=== PATIENT | male | born 1970 | race Caucasian/White ===

== ENCOUNTER 2021-03-15 06:42 | Outpatient (REF) | payer BC, SELFPAY ==
[2021-03-15 12:04] LABS: PSA,Total (Free>4and<10) 1.23 ng/mL (0.00-4.00)
== END 2021-03-15 06:43 | disposition home or self-care (01) ==
LOC: HO.HMGCLDS 06:42
PROVIDERS: PCP Internal Medicine; Visit Provider Urology
DX: Z12.5 Encounter for screening for malignant neoplasm of prostate (principal); R39.12 Poor urinary stream
CPT/HCPCS: 36415; 84153

== ENCOUNTER → 2021-03-21 12:56 | Outpatient (BNVA) | payer BC, SELFPAY | PROVIDERS: Visit Provider Urology | DX: R39.12 Poor urinary stream (principal); N52.01 Erectile dysfunction due to arterial insufficiency | CPT/HCPCS: 51798 ==

== ENCOUNTER 2022-04-18 10:01 | Outpatient (REF) | payer BC, SELFPAY ==
--- NOTE | ~2022-04-18 | XR_ITS ---
EXAMINATION: XR KNEE, RIGHT CLINICAL INFORMATION: Pain COMPARISON: None TECHNIQUE: Two views of the right knee. FINDINGS: No fracture or dislocation. No suprapatellar joint effusion. There is mild narrowing of the medial joint space height. Other joint spaces are maintained. Tiny tricompartmental marginal osteophytes. No focal soft tissue swelling of the anterior knee. XR/XR knee RT 2V IMPRESSION: Minimal degenerative changes of the right knee.
--- NOTE | ~2022-04-18 | XR_ITS ---
EXAMINATION: XR CHEST CLINICAL INFORMATION: Chest pain COMPARISON: None TECHNIQUE: 2 views of the chest were obtained. FINDINGS: No significant abnormality is noted involving the heart, lungs, mediastinum, bony thorax or soft tissues. XR/XR chest 2V IMPRESSION: Unremarkable examination.
== END 2022-04-18 10:02 | disposition home or self-care (01) ==
LOC: HO.HMGCX 10:01
PROVIDERS: PCP Family Medicine; Visit Provider Family Medicine
DX: R07.89 Other chest pain (principal); M25.561 Pain in right knee
CPT/HCPCS: 71046; 73560

== ENCOUNTER 2022-04-19 06:08 | Outpatient (REF) | payer BC, SELFPAY ==
[2022-04-19 11:12] LABS: MANUAL DIFF FLAG NO
[2022-04-19 11:16] LABS: Basophils Percent Auto 0.6 % (0-2); Eosinophils Absolute Auto 0.1 X10*3/uL (0.0-0.4); Eosinophils Percent Auto 2.1 % (0-4); Hematocrit 44.9 % (42.0-52.0); Hemoglobin 14.9 g/dl (14.0-18.0); Imm Gran Abs Auto 0.02 X10*3/uL (0.00-0.03); Imm Gran Pct Auto 0.4 % (0.0-0.4); Lymphocytes Absolute Auto 1.9 X10*3/uL (1.2-4.9); Lymphocytes Percent Auto 36.5 % (20-40); Mean Corpuscular HGB Conc 33.2 g/dl (31.0-36.0); Mean Corpuscular Hemoglobin 30.8 pg (27.0-33.0); Mean Corpuscular Volume 92.8 fL (80.0-98.0); Mean Platelet Volume 9.8 fL (9.4-12.4); Monocytes Absolute Auto 0.6 X10*3/uL (0.1-1.2); Monocytes Percent Auto 10.4 % (2-11); Neutrophils Absolute Auto 2.7 x10*3/uL (2.0-8.3); Platelet Count 306 X10*3/uL (160-400); Red Blood Count 4.84 X10*6/uL (4.60-5.80); Red Cell Distribution Width 12.8 % (11.0-16.0); White Blood Count 5.3 X10*3/uL (4.8-10.8)
[2022-04-19 11:22] LABS: Appearance Urine Turbid; Color Urine Yellow; Glucose Urine UA Negative (Negative); Leukocyte Esterase Urine Negative (Negative); Nitrite Urine Negative (Negative); PH 5.5 (5.0-9.0); Specific Gravity - Urine 1.025 (1.005-1.025); Urine Blood Negative (Negative); Urine Ketones Negative (Negative); Urine Protein Negative (Neg-Trace)
[2022-04-19 11:50] LABS: Creatinine Urine 230.92 mg/dL; Microalbum/Creatinine Ratio Ur 4.7 ug/mg cr
[2022-04-19 11:51] LABS: Troponin-I High Sensitivity < 3.5 ng/L (<3.5-35.0)
[2022-04-19 11:55] LABS: Alanine Aminotransferase 22 U/L (0-40); Albumin Level 4.4 g/dL (3.5-5.0); Alkaline Phosphatase 75 U/L (39-117); Anion Gap 14 (12-20); Aspartate Amino Transferase 19 U/L (5-37); Bilirubin Total 0.7 mg/dL (0.0-1.0); Blood Urea Nitrogen 16 mg/dL (9-16); Calcium 9.4 mg/dL (8.4-10.2); Carbon Dioxide 26 mmol/L (22-29); Chloride 106 mmol/L (96-108); Cholesterol 233 mg/dL; Estimated Glomerular Filt Rate > 60; Glucose Fasting 105 mg/dL (60-99); HDL Cholesterol 48 mg/dL; LDL Cholesterol Calculated 151 mg/dl; Potassium 4.3 mmol/L (3.3-5.1); Sodium 142 mmol/L (135-145); Total Protein 7.3 g/dL (6.5-8.0); Triglycerides 170 mg/dL
[2022-04-19 11:56] LABS: Prostate Specific Antigen Scr 1.02 ng/mL (<0.05-4.0)
== END 2022-04-19 06:09 | disposition home or self-care (01) ==
LOC: HO.HMGCLDS 06:08
PROVIDERS: PCP Family Medicine; Visit Provider Family Medicine
DX: Z00.00 Encounter for general adult medical examination without abnormal findings (principal); R07.89 Other chest pain; I10 Essential (primary) hypertension; Z12.5 Encounter for screening for malignant neoplasm of prostate
CPT/HCPCS: 36415; 80053; 80061; 81003; 82043; 84153; 84443; 84484; 85025

== ENCOUNTER → 2022-04-24 07:33 | Outpatient (REF) | payer BC, SELFPAY ==
--- NOTE | 2022-04-24 07:35 | CA_ITS ---
Acquisition Time: 2022-04-24 08:02:12 Total Exercise Time: 00:12:45 Test Indications: CP, SOB Medications: SEE CHART Protocol: GILBERT Max HR: 155 BPM 92% of Pred: 167 BPM Max BP: 174/068 mmHG Max Work Load: 14.7 METS Exercise stress test with exercise 12 min 45 sec of Gilbert protocol, achieving 92% MPHR, 14.7 METs, with report of mild sob and fatigue with need to stop, no chest discomfort, without arrythmia, with normotensive response to exercise, without EKG changes meeting criteria for ischemia. In recovery his breathing improved but he reports an ongoing and continual feeling that he can't take in a deep breath . Test reviewed with Dr Angeles Referred By: Ganga Bullock Overread By: ROOSEVELT MARIA
== END ==
LOC: HO.CARD 07:33
PROVIDERS: PCP Family Medicine; Visit Provider Family Medicine
DX: R07.89 Other chest pain (principal)
CPT/HCPCS: 93017

== ENCOUNTER 2022-06-29 14:55 | Outpatient (REF) | payer BC, SELFPAY ==
--- NOTE | 2022-06-29 16:06 | PFT_ITS ---
INDICATION: Nicotine dependence. SPIROMETRY: FEV1 to FVC 90% with an FEV1 of 3.62 L, which is 97% predicted. FVC of 4.01 L, which is 82% predicted. No significant response to bronchodilators noted. Maximum voluntary ventilation 95% predicted. LUNG VOLUMES: Total lung capacity 91% predicted. DIFFUSION CAPACITY: DLCO 91% predicted. COMPARISONS: None. INTERPRETATION: No obstructive nor restrictive ventilatory defects identified. No significant response to bronchodilators noted. Normal maximum voluntary ventilation. Lung volumes are within normal limits and diffusion capacity is also within normal limits. Clinical correlation warranted. Chuck Johnson MD MR/MODL / [id number]
== END 2022-06-29 14:56 | disposition home or self-care (01) ==
LOC: HO.RESP 14:55
PROVIDERS: PCP Family Medicine; Visit Provider Family Medicine
DX: R06.00 Dyspnea, unspecified (principal); R09.02 Hypoxemia; Z87.891 Personal history of nicotine dependence
CPT/HCPCS: 94060; 94727; 94729

== ENCOUNTER → 2022-10-29 13:57 | Outpatient (BNVA) | payer BC, SELFPAY | PROVIDERS: PCP Family Medicine; Visit Provider Urology | DX: N40.1 Benign prostatic hyperplasia with lower urinary tract symptoms (principal); R33.8 Other retention of urine; R39.198 Other difficulties with micturition; R39.15 Urgency of urination; N52.9 Male erectile dysfunction, unspecified; Z79.899 Other long term (current) drug therapy | CPT/HCPCS: 51798 ==

== ENCOUNTER 2022-12-27 12:43 | Outpatient (REF) | payer BC, SELFPAY | END 2022-12-27 12:44 | disposition home or self-care (01) | LOC: HO.US 12:43 | PROVIDERS: Visit Provider Urology | DX: N40.0 Benign prostatic hyperplasia without lower urinary tract symptoms (principal) | CPT/HCPCS: 51798; 76775 ==

== ENCOUNTER 2022-12-27 13:35 | Outpatient (AMB) | payer BC, SELFPAY ==
--- NOTE | 2022-12-27 13:10 | A.OFFVIS_ITS ---
Intake Intake Visit Reasons: 2m/US Intake Note: Patient presents today for follow up ultrasound Meds: tadalafil, tamsulosin Antibiotic: None Blood Thinner: None Retrofit Installer Required: No Accompanied by: Self / Same As Patient Allergies No Known Allergies Allergy (Verified 12/27/22 14:03) HPI HPI Comments History of Present Illness Details Jaquan is a 52-year-old male who presents to the office for discussion of renal US results. 12/27/22-- Jaquan was initially evaluated by me on 10/29/22. He had complains of weak urianry stream and feeling of incomplete bladder emptying. At the time of visit he has been using tamsulosin for about a month that was prescribed with PCP as indicated. There was mild improvement in the urinary flow with the medication. He also had concerns regarding erectile dysfunction and I discussed restarting Cialis in combination with tamsulosin therapy. AUA symptom score discussed 21. He is here follow-up post renal US and to discuss any changes in his symptoms. The patient states improvement in nocturia and urinary flow with tamsulosin 0.4 mg QD. States improvement in erectile dysfucntion with Cialis 5 mg QD. Renal US results reviewed-- The US is yet to be transcribed by the radiologist. There is a possible left kidney stone, 7 mm left kidney stone versus calcified vessel. Evaluation today UA: Blood: 10 Osiel/uL, leukocytes: 125 Eva/uL. Plan: CAT scan was ordered. Follow-up after 3 months. [facility] Medical History Erectile dysfunction due to arterial insufficiency Weak urinary stream Surgical History History of surgery Family History Mother Colon cancer Sister Cervical ca Social History Housing: House Patient Tobacco Use Status: Former Tobacco user Tobacco use type: Cigarette Cigarettes Per Day: 20 Years Smoked: 30 e-Cigarette/Vaping Use: Never Used Second Hand Smoke Exposure: No service: Yes Current occupational status: employed Current occupational exposures/hazards: No Cognitive needs: No Hearing needs: No Vision needs: No Review of Systems Const All systems reviewed & are unremarkable except as noted in HPI and below Reports no additional complaints Eyes Reports no additional complaints ENT Denies neck pain Card Denies leg edema Resp Denies cough GI Denies constipation Musc Reports no additional complaints and Denies neck pain Skin/Breast Denies rash and Denies unusual bruising Neuro Reports no additional complaints Psych Reports no additional complaints Endo Reports no additional complaints Phillip/Lymph Reports no additional complaints Aller/Immun Reports no additional complaints Physical Exam Const General: healthy appearing, no acute distress and well developed Orientation/consciousness: patient oriented x3 HEENT Head: Yes normocephalic and Yes atraumatic Eyes Conjunctivae: conjunctivae normal Neck Neck: Yes normal visual inspection Chest Chest palpation & inspection: normal inspection of the chest Resp Effort & Inspection: normal respiratory effort Cardio Rate: regular rate GI Inspection: Yes normal to inspection Skin General skin exam: no rashes or lesions noted Neuro General: patient oriented x3 Psych Appearance: grossly normal Affect: normal affect Office Procedures Post Void Residual Post Residual Void Post Void Residual (PVR): 68 [id number] Void Residual by ultrasound Results AMB Urinalysis, Automated UA Leukoctes 125 Eva/uL Last Edit by [employer] on 12/27/22 14:14 UA Nitrite Negative Last Edit by [employer] on 12/27/22 14:14 UA Urobilinogen 0.2 mg/dL Last Edit by [employer] on 12/27/22 14:14 UA Protein 0 mg/dL Last Edit by [employer] on 12/27/22 14:14 UA pH 6.0 Last Edit by [employer] on 12/27/22 14:14 UA Blood 10 Osiel/uL Last Edit by [employer] on 12/27/22 14:14 UA Specific [place] 1.015 Last Edit by [employer] on 12/27/22 14:14 UA Ketone Negative Last Edit by [employer] on 12/27/22 14:14 UA Bilirubin 0 mg/dL Last Edit by [employer] on 12/27/22 14:14 UA Glucose 0 mg/dL Last Edit by [employer] on 12/27/22 14:14 Results Reviewed Results Reviewed: Laboratory Last Values Urine pH (Auto) 6.0 12/27/22 14:04 Specific [place] (Auto) 1.015 12/27/22 14:04 Urine Protein (Auto) 0 mg/dL 12/27/22 14:04 Glucose (UA)(Auto) 0 mg/dL 12/27/22 14:04 Urine Ketones (Auto) Negative 12/27/22 14:04 Urine Blood (Auto) 10 Osiel/uL 12/27/22 14:04 Urine Nitrite (Auto) Negative 12/27/22 14:04 Urine Bilirubin (Auto) 0 mg/dL 12/27/22 14:04 Urine Urobilinogen (Auto) 0.2 mg/dL 12/27/22 14:04 Leukocyte Esterase (Auto) 125 Eva/uL 12/27/22 14:04 Assessment & Plan Assessment & Plan (1) Kidney stone on left side: Code(s): N20.0 - Calculus of kidney (2) Slowing of urinary stream: Code(s): R39.198 - Other difficulties with micturition (3) Urgency of micturition: Code(s): R39.15 - Urgency of urination (4) Erectile dysfunction: Code(s): N52.9 - Male erectile dysfunction, unspecified Plan CAT scan was ordered. Follow-up after 3 months. Orders: Orders US renal BI 12/27/22 N40.0 - Benign prostatic hyperplasia without lower urinary tract symptoms CT abdomen pelvis wo IV con 12/27/22 N20.0 - Calculus of kidney AMB Urinalysis Automated 12/27/22 Z13.9 - Encounter for screening, unspecified AMB Post Void Residual by ultrasound 12/27/22 N40.0 - Benign prostatic hyperplasia without lower urinary tract symptoms Medications: Refilled tamsulosin (Flomax) 0.4 mg PO BEDTIME 90 caps 2RF 30 days tadalafil (Cialis) [id number] [facility] [id number] Member [id number] 5 mg PO DAILY 30 tabs 3RF Patient Instructions: The patient had an opportunity to ask questions regarding treatment plan. All questions were answered. Imaging, Laboratory studies and physical exam results were discussed and reviewed in detail. No major barriers to understanding were identified. The patient expressed understanding and agreement with the above treatment plan. The patient is aware they should contact our office by phone for worsening of their current condition or the appearance of new symptoms. Compliance is encouraged with any medications and followup testing that is ordered. It is a privilege to be allowed the opportunity to participate in the urologic care of your patient. If you have any questions or concerns regarding treatment for the above conditions please do not hesitate to contact me. The office telephone contact is [phone]. This note is constructed in part using voice recognition software. While every effort has been made to ensure accuracy looper fixer errors may have been included. Yours sincerely, Catrachito Mckeon MD Coding Level of Care Code Est Pt Level 4 (82264) Diagnoses Kidney stone on left side N20.0 Slowing of urinary stream R39.198 Urgency of micturition R39.15 Erectile dysfunction N52.9 CPT Codes Post Residual Void - PVR CPT Code: 55509-Jdgj Void Residual by ultrasound ([id number])
== END 2022-12-27 14:29 | disposition home or self-care (01) ==
PROVIDERS: Visit Provider Urology
DX: N20.0 Calculus of kidney (principal); R39.198 Other difficulties with micturition; R39.15 Urgency of urination; N52.9 Male erectile dysfunction, unspecified
CPT/HCPCS: 99214

== ENCOUNTER 2022-12-31 13:54 | Outpatient (AMB) | payer BC, SELFPAY ==
[2022-12-31 13:57] VITALS: BP 110/70; PULSE 60; BMI 28.3
--- NOTE | 2022-12-31 13:57 | MHC.OFFVIS ---
Intake Vital Signs 12/31/22 13:57 Height 5 ft 9 in Weight 191 lb 12.835 oz BMI 28.3 BP 110/70 Blood Pressure Location Lt brachial Position Sitting Pulse 60 Intake Visit Reasons: NPV Dyspnea, PCP Ara referred Intake Note: New patient c/o tightness in chest Market Risk Analyst Required: No Allergies No Known Allergies Allergy (Verified 12/27/22 14:03) Medication List - Last Reconciled 12/31/22 by Arthur Carrillo MD tadalafil (Cialis) 5 mg PO DAILY tamsulosin (Flomax) 0.4 mg PO BEDTIME 30 days HPI HPI Comments History of Present Illness Details Thank you for referring in cardiology consultation today for retrosternal chest tightness/pressure. He is a pleasant 52-year-old male with prior history of hyperlipidemia, smoking has been having persistent chest discomfort for the last 2 years. He says that he feels like somebody is sitting on his chest almost constantly. He had similar symptoms today when he came to the office and his EKGs normal with no evidence of ischemia. He had a stress test last April for the symptoms and which had excellent exercise capacity workload was negative for ischemia by EKG. He continues to have symptoms. However he said does not restrict his activity level. He continues to run 3 mi as at 10 minute mi pace without restriction. He does notice some shortness of breath but this is not unusual. He also underwent a pulmonary function test which is within acceptable limits. He is concerned about the symptoms. He denies any orthopnea, PND, leg edema. Denies any lightheadedness, syncope. No prolonged irregular heartbeat or palpitations. [facility] Medical History Erectile dysfunction due to arterial insufficiency Weak urinary stream Surgical History History of surgery Family History Mother Colon cancer Sister Cervical ca Social History Housing: House Patient Tobacco Use Status: Former Tobacco user Tobacco use type: Cigarette Cigarettes Per Day: 20 Years Smoked: 30 e-Cigarette/Vaping Use: Never Used Second Hand Smoke Exposure: No service: Yes Current occupational status: employed Current occupational exposures/hazards: No Cognitive needs: No Hearing needs: No Vision needs: No Review of Systems Const Denies chills, Denies daytime sleepiness, Denies fatigue, Denies fever(s), Denies frequent falls, Denies poor appetite, Denies snoring, Denies stops breathing during sleep, Denies weakness, Denies weight gain and Denies weight loss Eyes Denies loss of vision ENT Denies dizziness and Denies hearing loss Card Denies chest pain, Denies claudication, Denies leg edema, Denies lightheadedness, Denies palpitations, Denies dyspnea, Denies dyspnea on exertion and Denies orthopnea Resp Denies cough, Denies excessive phlegm production, Denies dyspnea, Denies dyspnea on exertion, Denies snoring and Denies wheezing GI Denies abdominal pain, Denies hematochezia, Denies change in bowel habits, Denies nausea and Denies vomiting Denies dysuria and Denies urinary frequency Musc Denies arthralgias, Denies muscle weakness, Denies numbness and Denies other (frequent falls) Skin/Breast Denies nail changes and Denies rash Neuro Denies Abnormal speech present, Denies dizziness, Denies frequent falls, Denies loss of vision, Denies memory loss, Denies numbness and Denies weakness Psych Denies depression and Denies memory loss Endo Denies fatigue and Denies palpitations Phillip/Lymph Reports easy bruising and Reports other (anemia) Aller/Immun Denies wheezing Physical Exam Vital Signs: Last Vital Signs Pulse 60 12/31/22 13:57 BP 110/70 12/31/22 13:57 BMI result Body Mass Index 28.3 Const General: cooperative, comfortable, no acute distress, well developed, alert, awake, Physically active and well groomed Nutritional Appearance: average body habitus and well nourished Orientation/consciousness: patient oriented x3 Limitations: no limitations HEENT Head: Yes normocephalic and Yes atraumatic Neck Neck: Yes trachea midline, Yes supple and Yes no JVD Resp Effort & Inspection: normal respiratory effort Auscultation: clear to auscultation bilaterally Cardio Jugular venous distension: no JVD Palpation: normal PMI Rate: regular rate Rhythm: regular rhythm Heart sounds: S1 normal heart sound present, S2 normal heart sound present, no click, no gallops, no murmurs and no rubs GI Auscultation: normal bowel sounds Skin General skin exam: no rashes or lesions noted Neuro General: patient oriented x3 and no focal motor deficits Speech: No Abnormal speech present Extrem General: Yes no clubbing, cyanosis or edema Psych Appearance: grossly normal Office Procedures EKG Details: EKG shows sinus bradycardia at 59 beats per minute [id number], Complete Assessment & Plan Assessment & Plan (1) Chest pressure: Code(s): R07.89 - Other chest pain Plan: Almost constant chest pressure in this middle-aged man with multiple risk factors. He also has exertional shortness of breath. His pulmonary workup is within normal limits. Would suggest an echocardiogram to assess for cardiac structure and function to evaluate for valvular abnormality and pulmonary hypertension. His chest pressure which is constant nature is nonischemic in nature and not suggestive of obstructive coronary artery disease given normal EKG with chest tightness on presentation today to the office as well as high workload stress test which was negative for ischemia. Likelihood of obstructive coronary artery disease extremely low. (2) Hyperlipidemia: Code(s): E78.5 - Hyperlipidemia, unspecified Plan: Hyperlipidemia with prior history of smoking. We discussed about further risk stratification in form of assessing for coronary atherosclerosis. We discussed about coronary calcium score. He is willing to partake in this test to further risk stratify. Further treatment and testing based on the findings of coronary calcium score. Will follow up in the clinic if need be. Thank you for allowing me to partake in his care Coding Level of Care Code New Pt Level 4 (29382) Diagnoses Chest pressure R07.89 Hyperlipidemia E78.5 CPT Codes EKG - CPT: 78721-[id number], Complete ([id number])
== END 2022-12-31 14:26 | disposition home or self-care (01) ==
PROVIDERS: PCP Family Medicine; Visit Provider Internal Medicine Cardiovascular Disease
DX: R07.89 Other chest pain (principal); E78.5 Hyperlipidemia, unspecified
CPT/HCPCS: 93010; 99204

== ENCOUNTER → 2022-12-31 13:54 | Outpatient (BNVA) | payer BC, SELFPAY | PROVIDERS: PCP Family Medicine; Visit Provider Internal Medicine Cardiovascular Disease | DX: R07.89 Other chest pain (principal) | CPT/HCPCS: 93005 ==

== ENCOUNTER → 2023-01-28 14:51 | Outpatient (REF) | payer BC, SELFPAY ==
--- NOTE | 2023-01-28 14:54 | CA_ITS ---
Transthoracic Echocardiogram Patient (Last, First, Middle): Jaquan Mendez W Gender: Male Date of : 1970 Age: 52 Procedure Date: 01/28/2023 Procedure Type: Transthoracic Echocardiogram Location: OP Height: 175.26 cm Weight: 85.73 kg BSA: 2.02 m2 Heart Rate: bpm BP: 124 / 60 mmHg Business Leader: Referring MD: Arthur Carrillo MD Symptoms: R06.00 - Dyspnea, unspecified Study Quality: Fair ECG Rhythm: Sinus Conclusions: - The left ventricular systolic function is normal. The calculated ejection fraction is 63% by biplane method. - No obvious valvular pathology seen on this study. Findings Left Ventricle Normal left ventricular cavity size. There is normal left ventricular wall thickness. The left ventricular systolic function is normal. The calculated ejection fraction is 63% by biplane method. There is no evidence of regional wall motion abnormalities. Diastolic function is normal for age. Right Ventricle Normal right ventricular cavity size and systolic function. Atria Both atria are normal in size. Aortic Valve There is a normal trileaflet aortic valve. There is no aortic valve stenosis. There is no aortic valve regurgitation. Mitral Valve The mitral valve appears normal. There is trace mitral valve regurgitation. There is no mitral valve stenosis. Pulmonic Valve The pulmonic valve is likely normal. Tricuspid Valve Normal tricuspid valve structure. There is no tricuspid valve regurgitation. There is no evidence of pulmonary hypertension. Great Vessels The asc aorta is normal in size. Venous The inferior vena cava is normal in size and collapses greater than 50% with inspiration. Pericardium/Pleural There is no evidence of pericardial effusion. Prior Study Comparison No prior study available for comparison. Recommendations, Care & Conclusions No obvious valvular pathology seen on this study. Measurements 2D Linear Measurements IVSd: 0.90 0.6-0.9/0.6-1.0 cm LVIDd: 5.10 3.9-5.3/4.2-5.9 cm LVIDd Index: 2.52 2.4-3.2/2.2-3.1 cm/m2 LVIDs: 3.10 2.0-3.6 cm LVPWd: 1.00 0.7-1.1 cm Ao Root: 3.40 2.1-3.5 cm LA Diam: 4.40 2.7-3.8/3.0-4.0 cm LAIDs Index: 2.18 1.5-2.3 cm/m2 LV Mass: 218.76 67-162/88-224 g LV Mass Index: 108.30 43-95/49-115 g/m2 LVOT Diam: 2.10 3.0+(-)1.3 cm 2D Systolic Function EF 4C: 60.90 >55% EF 2C: 62.70 >55% EF BiP: 63.10 >55% Mitral Valve MV Pk E: 0.96 MV PK A: 0.73 MV Decel Time: 203.00 E/A: 1.30 E'Lateral: 12.70 E'Medial: 7.07 E/E' Med: 13.50 E/E' Lat: 7.50 PHT: 60.00 MVA PHT: 3.67 Decel Knox: 4.70 Aortic Valve AoV Pk Bryan: 1.63 AoV Mn Bryan: 1.06 AoV VTI: 0.36 AoV Pk Grad: 11.00 Aov Mn Grad: 5.00 DARYA Cont.VTI: 2.45 LVOT LVOT Pk Bryan: 1.14 LVOT Mn Bryan: 0.72 LVOT VTI: 0.25 LVOT Pk Grad: 5.00 LVOT Mn Grad: 3.00 LVOT Diam: 2.10 LVOT Area: 3.46 Diastolic Function MV Pk E: 0.96 MV Pk A: 0.73 E/A: 1.30 E'Medial: 7.07 E/E' Med: 13.50 E' Laterial: 12.70 E/E' Lat: 7.50 Right Ventricle TAPSE (mm): 27.00 TVS' Bryan: 13.00 Tricuspid Valve TR Pk Bryan: 1.89 TR Pk Grad: 14.00 RA Press: 3.00 RVSP: 17.00 Great Vessels Aorta Ao Root-2D: 3.40 2.0-3.7 cm Ao Asc: 3.50 2.1-3.4 cm Pulmonary Valve PV Pk Bryan: 1.27 Peak PV Grad: 6.00 Updated in Other Vendor System with Status of Final Carlo Angeles MD electronically signed on 01/29/2023 12:04:15 PM with status of Final
== END ==
LOC: HO.CARD 14:51
PROVIDERS: Visit Provider Internal Medicine Cardiovascular Disease
DX: R06.00 Dyspnea, unspecified (principal)
CPT/HCPCS: 93306

== ENCOUNTER → 2023-01-28 14:54 | Outpatient (BNV) | payer BC, SELFPAY | PROVIDERS: Visit Provider Internal Medicine | DX: R06.00 Dyspnea, unspecified (principal) | CPT/HCPCS: 93306 ==

== ENCOUNTER 2023-03-18 14:50 | Outpatient (REF) | payer BC, SELFPAY ==
--- NOTE | ~2023-03-18 | CT_ITS ---
EXAMINATION: CT ABDOMEN AND PELVIS WITHOUT CONTRAST CLINICAL INFORMATION: Renal calculus. COMPARISON: Renal ultrasound 12/27/2022. TECHNIQUE: Multidetector volumetric imaging was performed from the superior aspect of the liver through the pubic symphysis. Sagittal and coronal reformatted images were obtained on the technologist's workstation. This CT examination was performed using dose optimization techniques as appropriate, variously including the following: *Automated exposure control *Adjustment of mA and/or kV according to patient size (this includes techniques or standardized protocols for targeted exams where dose is matched to indication/reason for exam; i.e. extremities or head) *Use of iterative reconstruction technique DLP: 480 mGy-cm FINDINGS: LUNG BASES: The visualized lung bases are unremarkable. LIVER, GALLBLADDER, AND BILIARY TREE: The liver is normal in size, shape, and attenuation. No focal hepatic lesion or biliary ductal dilatation is present. The gallbladder is unremarkable with no evidence of radiopaque gallstones, gallbladder wall thickening, or obvious pericholecystic inflammatory changes. PANCREAS: No discrete mass. No ductal dilatation. SPLEEN: Normal. ADRENAL GLANDS: No adrenal mass. KIDNEYS AND URETERS: 1 cm parapelvic cyst right mid kidney measures simple density. No follow-up imaging is recommended. 3 mm nonobstructing calculus in the lower pole the left kidney measuring 10.7 cm from the posterolateral skin surface. No other calculi are visible. No perinephric stranding. BLADDER: Unremarkable. GASTROINTESTINAL TRACT: Small bowel is normal in caliber. No mesenteric mass or fluid. The appendix appears normal. Mild colonic diverticulosis without evidence of diverticulitis. ABDOMINAL WALL: Small fat-containing left inguinal hernia. LYMPH NODES: No lymphadenopathy. VASCULAR: No aortic aneurysm. PELVIC VISCERA: The prostate measures 3.9 x 3.2 x 3.7 cm, approximately 23 mL. OSSEOUS STRUCTURES: Mild degenerative changes in the spine. CT/CT abdomen pelvis wo IV con IMPRESSION: 3 mm nonobstructing calculus lower pole left kidney. Mild colonic diverticulosis. Fleischner guidelines were followed.
== END 2023-03-18 14:51 | disposition home or self-care (01) ==
LOC: HO.CT 14:50
PROVIDERS: Visit Provider Urology
DX: N20.0 Calculus of kidney (principal)
CPT/HCPCS: 74176

== ENCOUNTER 2023-04-11 10:02 | Outpatient (AMB) | payer BC, SELFPAY ==
--- NOTE | 2023-04-11 10:05 | MHC.OFFVIS ---
Intake Intake Visit Reasons: 3m /CT Intake Note: Patient presents today for a follow-up on CT Scan Results, completed on 03/18/2023: Meds- None Allergies to Antibiotic- No Known Allergies Blood Thinner- None Oxygen Equipment Aide Required: No Accompanied by: Self / Same As Patient Allergies No Known Allergies Allergy (Verified 04/11/23 10:05) HPI HPI Comments History of Present Illness Details Jaquan is a 52-year-old male who presents today to the office for a follow-up. -- He is followed today for CT results. He is being followed for BPH, ED, and microscopic hematuria, recent renal sono was noteable for possible kidney stone. The patient states improvement in nocturia and urinary flow with tamsulosin 0.4 mg QD, however, he is concerned of being on medication fdc. States improvement in erectile dysfucntion with Cialis 5 mg QD. I reviewed the CT of the abdomen/pelvis results from 03/18/23 revealed 3 mm nonobstructing calculus lower pole left kidney. I have discussed with him that a 3 mm stone in the left kidney. I discussed that stones less than 5 mm have a higher percentage chance of passing without requiring any procedure. Review of chart: Imagin12/27/22--Renal US results reviewed-- There is an echogenic stone versus calcified vessels in the lower pole measuring 0.5 x 0.3 x 0.7 cm. 04/11/23: Plan: Cystoscopy for further evaluation and possible dilation. Discussed metabolic evaluation for kidney stones. Will order a 24- hour urine collection. [facility] Medical History Erectile dysfunction due to arterial insufficiency Weak urinary stream Surgical History History of surgery Family History Mother Colon cancer Sister Cervical ca Social History Housing: House Patient Tobacco Use Status: Former Tobacco user Tobacco use type: Cigarette Cigarettes Per Day: 20 Years Smoked: 30 e-Cigarette/Vaping Use: Never Used Second Hand Smoke Exposure: No service: Yes Current occupational status: employed Current occupational exposures/hazards: No Cognitive needs: No Hearing needs: No Vision needs: No Review of Systems Const All systems reviewed & are unremarkable except as noted in HPI and below Reports no additional complaints Eyes Reports no additional complaints ENT Denies neck pain Card Denies leg edema Resp Denies cough GI Denies constipation Musc Reports no additional complaints and Denies neck pain Skin/Breast Denies rash and Denies unusual bruising Neuro Reports no additional complaints Psych Reports no additional complaints Endo Reports no additional complaints Phillip/Lymph Reports no additional complaints Aller/Immun Reports no additional complaints Results AMB Urinalysis, Automated UA Leukoctes 0 Eva/uL Last Edit by Fernanda Feldman [facility] on 04/11/23 10:31 UA Nitrite Negative Last Edit by Fernanda Feldman [facility] on 04/11/23 10:31 UA Urobilinogen 0.2 mg/dL Last Edit by Fernanda Feldman [facility] on 04/11/23 10:31 UA Protein 0 mg/dL Last Edit by Fernanda Feldman [facility] on 04/11/23 10:31 UA pH 6.0 Last Edit by Fernanda Feldman [facility] on 04/11/23 10:31 UA Blood 0 Osiel/uL Last Edit by Fernanda Feldman [facility] on 04/11/23 10:31 UA Specific [place] 1.010 Last Edit by Fernanda Feldman [facility] on 04/11/23 10:31 UA Ketone Negative Last Edit by Fernanda Feldman [facility] on 04/11/23 10:31 UA Bilirubin 0 mg/dL Last Edit by Fernanda Feldman [facility] on 04/11/23 10:31 UA Glucose 0 mg/dL Last Edit by Fernanda Feldman [facility] on 04/11/23 10:31 Results Reviewed Results Reviewed: Laboratory Last Values Urine pH (Auto) 6.0 04/11/23 10:30 Specific [place] (Auto) 1.010 04/11/23 10:30 Urine Protein (Auto) 0 mg/dL 04/11/23 10:30 Glucose (UA)(Auto) 0 mg/dL 04/11/23 10:30 Urine Ketones (Auto) Negative 04/11/23 10:30 Urine Blood (Auto) 0 Osiel/uL 04/11/23 10:30 Urine Nitrite (Auto) Negative 04/11/23 10:30 Urine Bilirubin (Auto) 0 mg/dL 04/11/23 10:30 Urine Urobilinogen (Auto) 0.2 mg/dL 04/11/23 10:30 Leukocyte Esterase (Auto) 0 Eva/uL 04/11/23 10:30 Date of Service: 03/18/23 EXAMINATION: CT ABDOMEN AND PELVIS WITHOUT CONTRAST CLINICAL INFORMATION: Renal calculus. COMPARISON: Renal ultrasound 12/27/2022. TECHNIQUE: Multidetector volumetric imaging was performed from the superior aspect of the liver through the pubic symphysis. Sagittal and coronal reformatted images were obtained on the technologist's workstation. This CT examination was performed using dose optimization techniques as appropriate, variously including the following: *Automated exposure control *Adjustment of mA and/or kV according to patient size (this includes techniques or standardized protocols for targeted exams where dose is matched to indication/reason for exam; i.e. extremities or head) *Use of iterative reconstruction technique DLP: 480 mGy-cm FINDINGS: LUNG BASES: The visualized lung bases are unremarkable. LIVER, GALLBLADDER, AND BILIARY TREE: The liver is normal in size, shape, and attenuation. No focal hepatic lesion or biliary ductal dilatation is present. The gallbladder is unremarkable with no evidence of radiopaque gallstones, gallbladder wall thickening, or obvious pericholecystic inflammatory changes. PANCREAS: No discrete mass. No ductal dilatation. SPLEEN: Normal. ADRENAL GLANDS: No adrenal mass. KIDNEYS AND URETERS: 1 cm parapelvic cyst right mid kidney measures simple density. No follow-up imaging is recommended. 3 mm nonobstructing calculus in the lower pole the left kidney measuring 10.7 cm from the posterolateral skin surface. No other calculi are visible. No perinephric stranding. BLADDER: Unremarkable. GASTROINTESTINAL TRACT: Small bowel is normal in caliber. No mesenteric mass or fluid. The appendix appears normal. Mild colonic diverticulosis without evidence of diverticulitis. ABDOMINAL WALL: Small fat-containing left inguinal hernia. LYMPH NODES: No lymphadenopathy. VASCULAR: No aortic aneurysm. PELVIC VISCERA: The prostate measures 3.9 x 3.2 x 3.7 cm, approximately 23 mL. OSSEOUS STRUCTURES: Mild degenerative changes in the spine. IMPRESSION: 3 mm nonobstructing calculus lower pole left kidney. Mild colonic diverticulosis. Date of Service: 12/27/22 EXAMINATION: US RETROPERITONEAL LIMITED (RENAL ONLY) CLINICAL INFORMATION: Benign prostatic hyperplasia without lower urinary tract symptoms. COMPARISON: None available. TECHNIQUE: Routine grayscale imaging of kidneys is performed. FINDINGS: RIGHT KIDNEY: 12.7 x 5.3 x 5.0 cm (SAG x AP x TRV). The kidney is normal in size, contour, and echogenicity. Renal cortical thickness is normal. No calculi or focal parenchymal lesions. No hydronephrosis. There is anechoic cyst in the midpole measuring 1.2 x 1.6 x 1.2 cm. Small echogenic area in the lower pole likely calcified vessel. LEFT KIDNEY: 13.4 x 5.8 x 3.5 cm (SAG x AP x TRV). The kidney is normal in size, contour, and echogenicity. Renal cortical thickness is normal. There is an echogenic stone versus calcified vessels in the lower pole measuring 0.5 x 0.3 x 0.7 cm. No hydronephrosis. IMPRESSION: Simple cyst midpole right kidney. Echogenic stone likely lower pole left kidney. Differential diagnosis question calcified vessel. Similar findings of calcified vessels are suspected in lower pole right kidney. Assessment & Plan Assessment & Plan (1) Kidney stone on left side: Code(s): N20.0 - Calculus of kidney (2) Slowing of urinary stream: Code(s): R39.198 - Other difficulties with micturition (3) Urgency of micturition: Code(s): R39.15 - Urgency of urination (4) Erectile dysfunction: Code(s): N52.9 - Male erectile dysfunction, unspecified (5) BPH (benign prostatic hyperplasia): Code(s): N40.0 - Benign prostatic hyperplasia without lower urinary tract symptoms Plan Cystoscopy for further evaluation and possible dilation. Discussed metabolic evaluation for kidney stones. Will order a24- hour urine collection. Orders: Orders AMB Urinalysis Automated 04/11/23 Z13.9 - Encounter for screening, unspecified Patient Instructions: The patient had an opportunity to ask questions regarding treatment plan. All questions were answered. Imaging, Laboratory studies and physical exam results were discussed and reviewed in detail. No major barriers to understanding were identified. The patient expressed understanding and agreement with the above treatment plan.? ? ? The patient is aware they should contact our office by phone for worsening of their current condition or the appearance of new symptoms. Compliance is encouraged with any medications and followup testing that is ordered.? ? ? It is a privilege to be allowed the opportunity to participate in the urologic care of your patient. If you have any questions or concerns regarding treatment for the above conditions please do not hesitate to contact me. The office telephone contact is [phone].? ? ? This note is constructed in part using voice recognition software. While every effort has been made to ensure accuracy messenger office errors may have been included.? ? ? Yours sincerely,? ? ? Catrachito Mckeon MD? ? Coding Level of Care Code Est Pt Level 4 (21855) Diagnoses Kidney stone on left side N20.0 Slowing of urinary stream R39.198 Urgency of micturition R39.15 Erectile dysfunction N52.9 BPH (benign prostatic hyperplasia) N40.0
--- NOTE | 2023-04-11 10:05 | MHC.OFFVIS ---
Intake Intake Visit Reasons: 3m /CT Allergies No Known Allergies Allergy (Verified 04/11/23 10:05) HPI HPI Comments History of Present Illness Details Jaquan is a 52-year-old male who presents today to the office for a follow-up. 04/11/23? He is followed today for CT results. He was last seen by me on 12/27/22 for erectile dysfunction. CAT scan was ordered, and he was advised to follow-up after 3 months during that time. I reviewed the CT of the abdomen/pelvis results from 03/18/23 revealed 3 mm nonobstructing calculus lower pole left kidney.? Mild colonic diverticulosis Review of charts: Last visit: 12/27/22--? Jaquan was initially evaluated by me on 10/29/22. He had complains of weak urianry stream and feeling of incomplete bladder emptying. At the time of visit he has been using tamsulosin for about a month that was prescribed with PCP as indicated. There was mild improvement in the urinary flow with the medication. He also had concerns regarding erectile dysfunction and I discussed restarting Cialis in combination with tamsulosin therapy. AUA symptom score discussed 21.? He is here follow-up post renal US? and to discuss any changes in his symptoms.? The patient states improvement in nocturia and urinary flow with tamsulosin 0.4 mg QD. States improvement in erectile dysfucntion with Cialis 5 mg QD.? Renal US results reviewed-- The US is yet to be transcribed by the radiologist. There is a possible left kidney stone, 7 mm left kidney stone versus calcified vessel. Evaluation today UA: Blood: 10 Osiel/uL, leukocytes: 125 Eva/uL. Plan:? CAT scan was ordered.? Follow-up after 3 months. 04/11/23: Evaluation today?UA? 04/11/23: Plan: [facility] Medical History Erectile dysfunction due to arterial insufficiency Weak urinary stream Surgical History History of surgery Family History Mother Colon cancer Sister Cervical ca Social History (Reviewed 04/11/23 @ 10:05 by SAQIB Garcia Housing: House Patient Tobacco Use Status: Former Tobacco user Tobacco use type: Cigarette Cigarettes Per Day: 20 Years Smoked: 30 e-Cigarette/Vaping Use: Never Used Second Hand Smoke Exposure: No service: Yes Current occupational status: employed Current occupational exposures/hazards: No Cognitive needs: No Hearing needs: No Vision needs: No Results Reviewed Results Reviewed: Date of Service: 03/18/23 Procedure(s): CT abdomen pelvis wo IV con EXAMINATION: CT ABDOMEN AND PELVIS WITHOUT CONTRAST?? CLINICAL INFORMATION: Renal calculus.?? COMPARISON: Renal ultrasound 12/27/2022. FINDINGS: LUNG BASES: The visualized lung bases are unremarkable.?? LIVER, GALLBLADDER, AND BILIARY TREE: The liver is normal in size, shape, and attenuation. No focal hepatic lesion or biliary ductal dilatation is present. The gallbladder is unremarkable with no evidence of radiopaque gallstones, gallbladder wall thickening, or obvious pericholecystic inflammatory changes.?? PANCREAS: No discrete mass. No ductal dilatation.?? SPLEEN: Normal.?? ADRENAL GLANDS: No adrenal mass.?? KIDNEYS AND URETERS: 1 cm parapelvic cyst right mid kidney measures simple density. No follow-up imaging is recommended. 3 mm nonobstructing calculus in the lower pole the left kidney measuring 10.7 cm from the posterolateral skin surface. No other calculi are visible. No perinephric stranding.?? BLADDER: Unremarkable.?? GASTROINTESTINAL TRACT: Small bowel is normal in caliber. No mesenteric mass or fluid. The appendix appears normal. Mild colonic diverticulosis without evidence of diverticulitis.?? ABDOMINAL WALL: Small fat-containing left inguinal hernia.?? LYMPH NODES: No lymphadenopathy. VASCULAR: No aortic aneurysm. PELVIC VISCERA: The prostate measures 3.9 x 3.2 x 3.7 cm, approximately 23 mL. OSSEOUS STRUCTURES: Mild degenerative changes in the spine.?? IMPRESSION: 3 mm nonobstructing calculus lower pole left kidney. ?Mild colonic diverticulosis Assessment & Plan Assessment & Plan Patient Instructions: The patient had an opportunity to ask questions regarding treatment plan. All questions were answered. Imaging, Laboratory studies and physical exam results were discussed and reviewed in detail. No major barriers to understanding were identified. The patient expressed understanding and agreement with the above treatment plan.? ? ? The patient is aware they should contact our office by phone for worsening of their current condition or the appearance of new symptoms. Compliance is encouraged with any medications and followup testing that is ordered.? ? ? It is a privilege to be allowed the opportunity to participate in the urologic care of your patient. If you have any questions or concerns regarding treatment for the above conditions please do not hesitate to contact me. The office telephone contact is [phone].? ? ? This note is constructed in part using voice recognition software. While every effort has been made to ensure accuracy baking assistant errors may have been included.? ? ? Yours sincerely,? ? ? Catrachito Mckeon MD? ? Coding
== END 2023-04-11 11:27 | disposition home or self-care (01) ==
PROVIDERS: PCP Family Medicine; Visit Provider Urology
DX: N20.0 Calculus of kidney (principal); R39.198 Other difficulties with micturition; R39.15 Urgency of urination; N52.9 Male erectile dysfunction, unspecified; N40.0 Benign prostatic hyperplasia without lower urinary tract symptoms
CPT/HCPCS: 99214

== ENCOUNTER → 2023-04-11 10:02 | Outpatient (BNVA) | payer BC, SELFPAY | PROVIDERS: PCP Family Medicine; Visit Provider Urology | DX: N20.0 Calculus of kidney (principal); N40.1 Benign prostatic hyperplasia with lower urinary tract symptoms; R39.15 Urgency of urination; R39.198 Other difficulties with micturition; N52.9 Male erectile dysfunction, unspecified | CPT/HCPCS: 81003 ==

== ENCOUNTER 2023-05-06 09:19 | Outpatient (AMB) | payer BC, SELFPAY ==
--- NOTE | 2023-05-06 09:33 | MHC.OFFVIS ---
Intake Intake Visit Reasons: cysto/litholink Intake Note: Patient presents today for a Cystoscopy Procedure: Litholink Results Meds: Cialis & Flomax Allergies to Antibiotic: No Known Allergies Blood Thinner: None Disposable Uro-G Cystoscope Cannula: Lot: [id number] Exp: 10/31/2024 Bowling Ball Patcher Required: No Accompanied by: Self / Same As Patient Allergies No Known Allergies Allergy (Verified 05/06/23 09:34) HPI HPI Comments History of Present Illness Details Jaquan is a 52-year-old male who presents today to the office for a follow-up for office cysto and review 24 hr urine. 05/06/23--He is being followed for BPH, ED, and microscopic hematuria, States improvement in erectile dysfucntion with Cialis 5 mg QD. The patient states improvement in nocturia and urinary flow with tamsulosin 0.4 mg QD, however, he is concerned of being on medication manager terminal. Regarding Metabolic w/u for Kidney stones: I reviewed the 24-hour urine collection test results from 04/23/2023 urine volume 1.5 L, urine calcium was elevated at 290; urine oxalate was elevated 48, urine sodium and citrate was within the normal limits and discussed plan as noted below. Cystoscopy findings noted mild to moderate trabeculations with bilobar enlargement of the prostate no suspicious bladder lesions. Urethra was normal, no stricture. I did discuss increasing fluids recommended low oxalate diet reducing meat protein. Review of chart: Imaging: CT of the abdomen/pelvis results from 03/18/23 revealed 3 mm nonobstructing calculus lower pole left kidney. 12/27/22--Renal US results reviewed-- There is an echogenic stone versus calcified vessels in the lower pole measuring 0.5 x 0.3 x 0.7 cm. 05/06/23: Plan: Continue Flomax and Cialis. Ordered Vitamin B6 100 mg daily. Increase fluids, Reduce meat protein To repeat 24-hour urine collection test.in one year Follow-up in 1 year with PSA screening test. [facility] Medical History Erectile dysfunction due to arterial insufficiency Weak urinary stream Surgical History Hx of cystoscopy History of surgery Family History Mother Colon cancer Sister Cervical ca Social History Housing: House Patient Tobacco Use Status: Former Tobacco user Tobacco use type: Cigarette Cigarettes Per Day: 20 Years Smoked: 30 e-Cigarette/Vaping Use: Never Used Second Hand Smoke Exposure: No service: Yes Current occupational status: employed Current occupational exposures/hazards: No Cognitive needs: No Hearing needs: No Vision needs: No Review of Systems Const All systems reviewed & are unremarkable except as noted in HPI and below Reports no additional complaints Eyes Reports no additional complaints ENT Denies neck pain Card Denies leg edema Resp Denies cough GI Denies constipation Musc Reports no additional complaints and Denies neck pain Skin/Breast Denies rash and Denies unusual bruising Neuro Reports no additional complaints Psych Reports no additional complaints Endo Reports no additional complaints Phillip/Lymph Reports no additional complaints Aller/Immun Reports no additional complaints Office Procedures Cystoscopy Consent Discussed risk and benefit or proposed procedure with the patient. Information consent for procedure given to the patient. Discussed technical aspects, risks, benefits and alternatives in full. Addressed all of the patient's questions and concerns regarding the procedure. The patient demonstrated knowledge and understanding. They wish to proceed with this procedure. Preparation The patient was prepped in the usual manner. A yarn packer was present and in the room. Genitalia was prepped with betadine solution in a sterile manner. Lidocaine Jelly 2% was placed into the urethra and 16Fr flexible Olympus cystoscope was inserted into the meatus after adequate lubrication. Procedure Time out per protocol performed. Bladder Inspection Bladder Inspection: The bladder was inspected in its entirety with utilization retroflexion displaying: Tumor(s): none visualized Trabeculation: mild to moderate Mucosal Erthema: N/A Orifices: normal shape and position Urethra: normal Cystoscopy findings: prostatic urethra bilobar enlargement, bulbous urethra WNL, no suspicious bladder lesions visualized [id number] DISPOSABLE SCOPE URO-G FLEXIBLE SCOPE Procedure code (CPT) selection complete Office Meds lidocaine HCl 2 % mucosal jelly in applicator Performing Provider: Catrachito Mckeon MD Performing Location: [facility] [place] [facility] Administered by: Michaela Hill RN on 05/06/23 10:02 Dose Route Admin Location Dispensed Lot Number Expiration Date NDC Scrum Product Owner 10 mL intra-urethral 20 mL naproxen 500 mg tablet Performing Provider: Catrachito Mckeon MD Performing Location: [facility] [place] [facility] Administered by: Michaela Hill RN on 05/06/23 10:02 Dose Route Admin Location Dispensed Lot Number Expiration Date NDC Scrum Product Owner 500 mg PO 1 tab ciprofloxacin HCl 500 mg tablet Performing Provider: Catrachito Mckeon MD Performing Location: [facility] [place] [facility] Administered by: Michaela Hill RN on 05/06/23 10:02 Dose Route Admin Location Dispensed Lot Number Expiration Date NDC [employer] Product Owner 500 mg PO 1 tab Results AMB Urinalysis, Automated UA Leukoctes 0 Eva/uL Last Edit by Fernanda Feldman [facility] on 05/06/23 10:11 UA Nitrite Negative Last Edit by Fernanda Feldman [facility] on 05/06/23 10:11 UA Urobilinogen 0.2 mg/dL Last Edit by Fernanda Feldman [facility] on 05/06/23 10:11 UA Protein 15 mg/dL Last Edit by Fernanda Feldman [facility] on 05/06/23 10:11 UA pH 6.5 Last Edit by Fernanda Feldman [facility] on 05/06/23 10:13 UA pH previously reported as 6.0 Fernanda Feldman 05/06/23 10:13 UA Blood 0 Osiel/uL Last Edit by DONNA Garcia on 05/06/23 10:11 UA Specific [place] 1.010 Last Edit by Fernanda Feldman [facility] on 05/06/23 10:13 UA Specific [place] previously reported as 1.025 Fernanad Feldman 05/06/23 10:13 UA Ketone Negative Last Edit by Fernanda Feldman [facility] on 05/06/23 10:11 UA Bilirubin 0 mg/dL Last Edit by Fernanda Feldman [facility] on 05/06/23 10:11 UA Glucose 0 mg/dL Last Edit by Fernanda Feldman [facility] on 05/06/23 10:11 Results Reviewed Results Reviewed: Laboratory Last Values Urine pH (Auto) 6.5 05/06/23 10:10 Specific [place] (Auto) 1.010 05/06/23 10:10 Urine Protein (Auto) 15 mg/dL 05/06/23 10:10 Glucose (UA)(Auto) 0 mg/dL 05/06/23 10:10 Urine Ketones (Auto) Negative 05/06/23 10:10 Urine Blood (Auto) 0 Osiel/uL 05/06/23 10:10 Urine Nitrite (Auto) Negative 05/06/23 10:10 Urine Bilirubin (Auto) 0 mg/dL 05/06/23 10:10 Urine Urobilinogen (Auto) 0.2 mg/dL 05/06/23 10:10 Leukocyte Esterase (Auto) 0 Eva/uL 05/06/23 10:10 Assessment & Plan Assessment & Plan (1) Kidney stone on left side: Code(s): N20.0 - Calculus of kidney (2) Slowing of urinary stream: Code(s): R39.198 - Other difficulties with micturition (3) Urgency of micturition: Code(s): R39.15 - Urgency of urination (4) Erectile dysfunction: Code(s): N52.9 - Male erectile dysfunction, unspecified (5) BPH (benign prostatic hyperplasia): Code(s): N40.0 - Benign prostatic hyperplasia without lower urinary tract symptoms Plan Continue Flomax and Cialis. Ordered Vitamin B6 100 mg daily. To repeat 24-hour urine collection test. Follow-up in 1 year with PSA screening test. Orders: Orders AMB Cystoscopy Today N40.0 - Benign prostatic hyperplasia without lower urinary tract symptoms AMB Urinalysis Automated Today Z13.9 - Encounter for screening, unspecified Medications: New pyridoxine (vitamin B6) 100 mg PO DAILY 90 tabs 3RF Patient Instructions: The patient had an opportunity to ask questions regarding treatment plan. All questions were answered. Imaging, Laboratory studies and physical exam results were discussed and reviewed in detail. No major barriers to understanding were identified. The patient expressed understanding and agreement with the above treatment plan. The patient is aware they should contact our office by phone for worsening of their current condition or the appearance of new symptoms. Compliance is encouraged with any medications and followup testing that is ordered. It is a privilege to be allowed the opportunity to participate in the urologic care of your patient. If you have any questions or concerns regarding treatment for the above conditions please do not hesitate to contact me. The office telephone contact is [phone]. This note is constructed in part using voice recognition software. While every effort has been made to ensure accuracy commercial management accountant errors may have been included. Yours sincerely, Catrachito Mckeon MD Coding Level of Care Code Est Pt Level 3 (41068) Diagnoses Kidney stone on left side N20.0 Slowing of urinary stream R39.198 Urgency of micturition R39.15 Erectile dysfunction N52.9 BPH (benign prostatic hyperplasia) N40.0 CPT Codes Cystoscopy - CPT: [id number] ([id number]) Comment Modifier 24
== END 2023-05-06 10:45 | disposition home or self-care (01) ==
PROVIDERS: PCP Family Medicine; Visit Provider Urology
DX: N20.0 Calculus of kidney (principal); R39.198 Other difficulties with micturition; R39.15 Urgency of urination; N52.9 Male erectile dysfunction, unspecified; N40.0 Benign prostatic hyperplasia without lower urinary tract symptoms; Z13.9 Encounter for screening, unspecified
CPT/HCPCS: 52000; 99213

== ENCOUNTER → 2023-05-06 09:19 | Outpatient (BNVA) | payer BC, SELFPAY | PROVIDERS: PCP Family Medicine; Visit Provider Urology | DX: N20.0 Calculus of kidney (principal); N40.0 Benign prostatic hyperplasia without lower urinary tract symptoms; N52.1 Erectile dysfunction due to diseases classified elsewhere; R39.15 Urgency of urination; Z91.85 Personal history of military service | CPT/HCPCS: 52000; 81003 ==

== ENCOUNTER 2024-07-10 11:30 | Outpatient (AMB) | payer BC, SELFPAY ==
--- NOTE | 2024-07-10 11:52 | MHC.PC.OV ---
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 Allergies No Known Allergies Allergy (Verified 07/10/24 11:57) Tobacco use date assessed: 12/13/22 Dental Screening Dental Screen Date: 12/13/22 HPI F/U meds review HPI Details 54 y/o male presents to f/u chronic conditions. Notes he had a L shoulder injury. Had x-ray and PT already. [facility] Medical History Erectile dysfunction due to arterial insufficiency Weak urinary stream Surgical History Hx of cystoscopy History of surgery Family History Mother Colon cancer Sister Cervical ca Social History Housing: House Patient Tobacco Use Status: Former Tobacco user Tobacco use type: Cigarette Cigarettes Per Day: 20 Years Smoked: 30 e-Cigarette/Vaping Use: Never Used Second Hand Smoke Exposure: No service: Yes Current occupational status: employed Current occupational exposures/hazards: No Cognitive needs: No Hearing needs: No Vision needs: No Questionnaire PHQ-9 Over the last 2 weeks, how often have you been bothered by any of the following problems? 1. Little interest or pleasure in doing things: not at all 2. Feeling down, depressed, or hopeless: not at all 3. Trouble falling or staying asleep, or sleeping too much: not at all 4. Feeling tired or having little energy: several days 5. Poor appetite or overeating: not at all 6. Feeling bad about yourself - or that you are a failure or have let yourself or your family down: not at all 7. Trouble concentrating on things, such as reading the newspaper or watching television: not at all 8. Moving or speaking so slowly that other people could have noticed. Or the opposite - being so fidgety or restless that you have been moving around a lot more than usual: not at all 9. Thoughts that you would be better off or of hurting yourself in some way: not at all Total score: 1 Source: Developed by Drs. Vineet Sifuentes, Conchita Ureña, Elliot Brush and colleagues, with an educational julio from [employer]. Thrive Questionnaire Date Thrive assessed: 06/21/22 I am a: Patient What is your living situation today?: I have a steady place to live Within the past 12 months, did the food you bought not last and you didn't have the money to get more?: Never true Within the past 12 months, did you worry whether your food would run out before you got money to buy more?: Never true Do you have trouble paying for medicines?: No Do you have trouble getting transportation to medical appointments?: No Do you have trouble paying your heating and electricity bill?: No Do you have trouble taking care of your child, family member or friend?: No Do you have trouble with day-to-day activities such as bathing, preparing meals, shopping, managing finances, etc.?: No Are you currently unemployed and looking for a job?: No Are you interested in more education?: No Please select the resources that you would like help with: None Currently or been in a relationship where the following occur: No concerns reported THRIVE Score: 0 AUDIT C Alcohol Use Questionnaire (AUDIT-C) 1. How often do you have a drink containing alcohol?: 2-4 times a month 2. How many drinks containing alcohol do you have on a typical day when you are drinking?: 3 or 4 3. How often do you have six or more drinks on one occasion?: Never Total Score: 3 OLGA-7 AMB Questionnaire OLGA-7 Date OLGA - 7 assessed: 06/21/22 Feeling nervous, anxious, or on edge: 0 = Not at all Not being able to stop or control worryin = Not at all Worrying too much about different things: 0 = Not at all Trouble relaxin = Not at all Being so restless that it is hard to sit still: 0 = Not at all Becoming easily annoyed or irritable: 1 = Several days Feeling afraid as if something awful might happen: 0 = Not at all Total OLGA-7 score (0-4 normal; 5-9 mild; 10-14 moderate; 15-21 severe): 1 Source: Developed by Drs. Vineet Sifuentes, Conchita Ureña, Elliot Brush and colleagues, with an educational julio from [employer]. Review of Systems Const Denies chills, Denies fatigue, Denies fever(s), Denies headache(s) and Denies weakness ENT Denies dizziness and Denies headache(s) Card Denies dyspnea Resp Denies cough, Denies dyspnea, Denies wheezing and Denies other (shortness of breath) Musc Denies numbness and Denies tingling Neuro Denies dizziness, Denies headache(s), Denies numbness, Denies tingling and Denies weakness Psych Denies anxiety and Denies depression Endo Denies fatigue Aller/Immun Denies wheezing Physical exam (Primary Care) Vital Signs: Last Vital Signs Temp 98.4 F 07/10/24 12:00 Pulse 59 07/10/24 12:00 Resp 14 07/10/24 12:00 BP 110/60 07/10/24 12:00 Pulse Ox 98 07/10/24 12:00 Oxygen Delivery Method Room Air 07/10/24 12:00 BMI result Body Mass Index 29.6 Tobacco/Smoking Status: Tobacco use Status Tobacco use date assessed 12/13/22 07/10/24 11:54 Patient Tobacco Use Status Former Tobacco user 07/10/24 11:54 Tobacco use type Cigarette 07/10/24 11:54 e-Cigarette/Vaping Use Never Used 07/10/24 11:54 PHQ-9: PHQ-9 Score PHQ-9: Total score 1 07/10/24 11:54 Thrive Assessment: Date of Thrive Assessment Date Thrive assessed 06/21/22 07/10/24 11:54 Currently or been in a relationship where the following occur: No concerns reported Const General: well developed; No acute distress Nutritional Appearance: well nourished Orientation/consciousness: patient oriented x3 HENMT Head: Yes normocephalic and Yes atraumatic Eyes General: appearance normal, both eyes and all related structures Pupils: Equal, round and reactive pupils present EOM: EOMs intact bilaterally Resp Effort & Inspection: normal respiratory effort Neuro General: patient oriented x3 and gait normal Cranial nerves: Yes Equal, round and reactive pupils present Psych Affect: normal affect Coding Level of Care Code Est Pt Level 4 (36942) Diagnoses Left shoulder pain M25.512 Hyperlipidemia E78.5 Assessment & Plan Assessment & Plan (1) Left shoulder pain: Code(s): M25.512 - Pain in left shoulder Category: Medical Plan: Left?shoulder?pain?with?some?apprehension?and?decreased?range?of?motion?as?well?as?crepitus. Tenderness?with?abduction?against?resistance.??Some?discomfort?with?abduction?past?90?degrees. Pain?with?internal?rotation Also?some?pain?with?anterior?flexion?at?the?bicipital?groove. I?think?he?has?some?strain?and?partial?tears?of?biceps?tendon?as?well?as?rotator?cuff?muscles. 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 Offered?to?write?a?letter?as?I?think?it?would?be?in?his?best?interest?to?avoid?strenuous?lifting?and?pushups?with?his?right?shoulder.??Patient?declines?this?for?now. Advised?him?to?follow-up?with?ortho?prior?to?his?next?physical?training?evaluation?in?August. (2) Hyperlipidemia: Code(s): E78.5 - Hyperlipidemia, unspecified Category: Medical Plan: History?rather?high?LDL?cholesterol He?did?have?some?chest?pressure?in?the?past?which?has?resolved.??He?has?seen?Cardiology?and?they?did?not?feel?that?it?was?likely?had?any?acute?coronary?syndrome?but?did?recommend?a?CT?calcium?score?which?I?have?ordered. Checking?patient's?lipids?again Very?long?discussion?about?statins?as?he?does?not?like?the?idea?taking?in. We?will?see?him?at?his?cholesterol?levels?and?calcium?score?are?and?discuss?further. He?will?work?on?diet?lower?in?saturated?fats?and?cholesterol Orders: Orders Comprehensive [place]. Panel Fast Today M25.512 - Pain in left shoulder, Z00.00 - Encounter for general adult medical examination without abnormal findings TSH reflex Free T4 Today M25.512 - Pain in left shoulder, Z00.00 - Encounter for general adult medical examination without abnormal findings CT Coronary Calcium Score Today E78.5 - Hyperlipidemia, unspecified, R07.89 - Other chest pain XR shoulder LT min 2V Today M25.512 - Pain in left shoulder Lipid Panel Today M25.512 - Pain in left shoulder, Z00.00 - Encounter for general adult medical examination without abnormal findings Complete Blood Count Auto Diff Today M25.512 - Pain in left shoulder, Z00.00 - Encounter for general adult medical examination without abnormal findings Microalbumin, Random (w Creat) Today I10 - Essential (primary) hypertension, M25.512 - Pain in left shoulder Prostate Specific Antigen Scr Today M25.512 - Pain in left shoulder, Z12.5 - Encounter for screening for malignant neoplasm of prostate UA and rflx microscopic Today M25.512 - Pain in left shoulder, Z00.00 - Encounter for general adult medical examination without abnormal findings Referrals Orthopedics Referral M25.512 - Pain in left shoulder
[2024-07-10 12:00] VITALS: BP 110/60; PULSE 59; RESP 14; TEMP 36.9; O2SAT 98; BMI 29.6
--- OUTSIDE RECORDS SUMMARY | 2024-07-10 14:04 | XMS_ITS | Continuity of Care Document ---
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 It does not include entries that were removed or entered in error. Problem Status Onset Date Problem Type Date of Resolution Comments Source ASSESSMENT, POST-DEPLOYMENT, DOCUMENTED ON [id number] Inactive 07/04/2016 Condition DoD Encounter for other administrative examinations Inactive 07/04/2016 Condition DoD epistaxis Inactive 02/21/2016 Condition DoD Immunizations Combined list of available immunizations from the Department of Defense and Veterans Affairs facilities. Immunization Series Date Given Administered By Site Reaction Lot Number CVX Code Drug Pet Walker Status Comments Source tetanus, diphtheria, acellular pertu is 2021 [id number] sanofi pasteur complet ed tetanus, diphtheri a, acellular pertussis 04/28/22 Given Ambulat ory Pharmac y influenza, injectable, quadrivalent- pf 2021 [id number] GlaxoSmithKli ne complet ed influenza , injectabl e, quadrival ent-pf 04/08/22 Given Ambulat ory Pharmac y influenza virus vaccine, inactivated 2020 [id number] Seqirus complet ed influenza virus vaccine, inactivat ed 04/30/21 Given Ambulat ory Pharmac y COVID Vaccine Moderna 2020 [id number] complet ed COVID Vaccine Moderna 08/19/20 Given Ambulat ory Pharmac y COVID Vaccine Moderna 2020 [id number] complet ed COVID Vaccine Moderna 07/18/20 Given Ambulat ory Pharmac y influenza, injectable, quadrivalent- pf 2019 [id number] 150 Seqirus complet ed influenza , injectabl e, quadrival ent-pf 05/01/20 Given Ambulat ory Pharmac y influenza, injectable, quadrivalent- pf 2018 [id number] 150 Seqirus complet ed influenza , injectabl e, quadrival ent-pf 05/30/19 Given Ambulat ory Pharmac y influenza, injectable, quadrivalent- pf 2017 [id number] 150 Seqirus complet ed influenza , injectabl e, quadrival ent-pf 05/31/18 Given Ambulat ory Pharmac y influenza, seasonal, injectable 2016 [id number] complet ed influenza , seasonal, injectabl e 04/08/17 Given Ambulat ory Pharmac y tuberculin purified protein derivative 2016 [id number] 96 sanofi pasteur complet ed tuberculi n purified protein derivativ e 12/30/16 Given Ambulat ory Pharmac y anthrax vaccine 2015 [id number] 24 [employer] complet ed anthrax vaccine 05/24/16 Given Ambulat ory Pharmac y influenza, seasonal, injectable 2015 [id number] 141 Seqirus complet ed influenza , seasonal, injectabl e 05/07/16 Given Ambulat ory Pharmac y yellow fever vaccine 2015 [id number] 37 sanofi pasteur complet ed yellow fever vaccine 03/27/16 Given Ambulat ory Pharmac y meningococcal A,C,Y,W-135 (MCV4P) 2015 [id number] 114 sanofi pasteur complet ed meningoco ccal A,C,Y,W-1 35 (MCV4P) 03/27/16 Given Ambulat ory Pharmac y poliovirus vaccine, inactivated 2015 [id number] 10 Unknown complet ed polioviru s vaccine, inactivat ed 03/27/16 Given Ambulat ory Pharmac y anthrax vaccine 2015 [id number] 24 [employer] complet ed anthrax vaccine 12/23/15 Given Ambulat ory Pharmac y anthrax vaccine 2015 [id number] 24 [employer] complet ed anthrax vaccine 11/25/15 Given Ambulat ory Pharmac y measles/mumps /rubella virus vaccine 2015 [id number] [employer] Inc complet ed measles/m umps/rube lla virus vaccine 11/25/15 Given Ambulat ory Pharmac y typhoid Vi capsular polysaccharid e vac 2015 [id number] sanofi pasteur complet ed typhoid Vi capsular polysacch aride vac 11/25/15 Given Ambulat ory Pharmac y influenza, seasonal, injectable-pf 2014 [id number] 140 CSL Behring complet ed influenza , seasonal, injectabl e-pf 04/28/15 Given Ambulat ory Pharmac y hepatitis B adult vaccine 2014 [id number] 43 [employer] complet ed hepatitis B adult vaccine 07/04/14 Given Ambulat ory Pharmac y influenza, seasonal, injectable-pf 2013 [id number] 140 C[employer] Behring complet ed influenza , seasonal, injectabl e-pf 03/28/14 Given Ambulat ory Pharmac y hepatitis B adult vaccine 2013 [id number] 43 [employer] complet ed hepatitis B adult vaccine 01/03/14 Given Ambulat ory Pharmac y hepatitis B adult vaccine 2013 [id number] 43 [employer] complet ed hepatitis B adult vaccine 11/29/13 Given Ambulat ory Pharmac y influenza, seasonal, injectable-pf 2012 [id number] 140 sanofi pasteur complet ed influenza , seasonal, injectabl e-pf 03/17/13 Given Ambulat ory Pharmac y influenza, seasonal, injectable-pf 2011 [id number] 140 C[employer] complet ed influenza , seasonal, injectabl e-pf 04/06/12 Given Ambulat ory Pharmac y tetanus, diphtheria, acellular pertu is 2011 [id number] 115 sanofi pasteur complet ed tetanus, diphtheri a, acellular pertussis 04/06/12 Given Ambulat ory Pharmac y influenza, seasonal, injectable-pf 2010 [id number] 140 C[employer]ring complet ed influenza , seasonal, injectabl e-pf 03/25/11 Given Ambulat ory Pharmac y influenza virus vaccine, live 2009 [id number] 111 [employer] comple t ed influenza virus vaccine, live 04/29/10 Given Ambulat ory Pharmac y Novel influenza-H1N 1-09, injectable 2009 [id number] 127 Novartis Pharm[employer] ls complet ed Novel influenza -L9R0-27, injectabl e 07/17/09 Given Ambulat ory Pharmac y typhoid Vi capsular polysaccharid e vac 2008 [id number] sanofi pasteur complet ed typhoid Vi capsular polysacch aride vac 03/26/09 Given Ambulat ory Pharmac y influenza virus vaccine, live 2008 [id number] 111 [employer]lr [facility] comple t ed influenza virus vaccine, live 03/26/09 Given Ambulat ory Pharmac y influenza virus vaccine,split 2007 [id number] 15 GlaxoSmithKli ne complet ed influenza virus vaccine,s plit 04/25/08 Given Ambulat ory Pharmac y influenza virus vaccine,split 2006 [id number] 15 GlaxoSmithKli ne complet ed influenza virus vaccine,s plit 04/26/07 Given Ambulat ory Pharmac y typhoid vaccine, parenteral 2006 [id number] sanofi pasteur complet ed typhoid vaccine, parentera l 12/28/06 Given Ambulat ory Pharmac y influenza virus vaccine,split 2005 [id number] 15 Unknown complet ed influenza virus vaccine,s plit 05/26/06 Given Ambulat ory Pharmac y influenza virus vaccine,split 2004 [id number] 15 sanofi pasteur complet ed influenza virus vaccine,s plit 05/27/05 Given Ambulat ory Pharmac y tuberculin purified protein derivative 2003 [id number] 96 sanofi pasteur complet ed tuberculi n purified protein derivativ e 09/11/03 Given Ambulat ory Pharmac y influenza virus vaccine, whole virus 2002 [id number] 16 sanofi pasteur complet ed influenza virus vaccine, whole virus 04/25/03 Given Ambulat ory Pharmac y tetanus-dipht h toxoids (Td) adult/adol 2002 [id number] 09 sanofi pasteur complet ed tetanus-d iphth toxoids (Td) adult/ado l 07/19/02 Given Ambulat ory Pharmac y typhoid vaccine, parenteral 2002 [id number] 41 sanofi pasteur complet ed typhoid vaccine, parentera l 07/19/02 Given Ambulat ory Pharmac y influenza virus vaccine, whole virus 2002 [id number] 16 sanofi pasteur complet ed influenza virus vaccine, whole virus 07/19/02 Given Ambulat ory Pharmac y tuberculin purified protein derivative 2001 [id number] 96 sanofi pasteur complet ed tuberculi n purified protein derivativ e 02/24/02 Given Ambulat ory Pharmac y tuberculin purified protein derivative 2000 [id number] 96 sanofi pasteur complet ed tuberculi n purified protein derivativ e 05/26/01 Given Ambulat ory Pharmac y influenza virus vaccine, whole virus 2000 [id number] 16 sanofi pasteur complet ed influenza virus vaccine, whole virus 05/14/01 Given Ambulat ory Pharmac y tuberculin purified protein derivative 2000 [id number] 96 [facility] complet ed tuberculi n purified protein derivativ e 07/14/00 Given Ambulat ory Pharmac y influenza virus vaccine, whole virus 2000 [id number] 16 [facility] complet ed influenza virus vaccine, whole virus 06/29/00 Given Ambulat ory Pharmac y typhoid vaccine, parenteral 1999 [id number] 41 [facility] complet ed typhoid vaccine, parentera l 01/13/00 Given Ambulat ory Pharmac y influenza virus vaccine, whole virus [id number] 16 [facility] complet ed influenza virus vaccine, whole virus 05/25/99 Given Ambulat ory Pharmac y tuberculin purified protein derivative 1998 [id number] 96 [facility] complet ed tuberculi n purified protein derivativ e 07/05/98 Given Ambulat ory Pharmac y hepatitis A adult vaccine 1998 [id number] [employer] complet ed hepatitis A adult vaccine 07/02/98 Given Ambulat ory Pharmac y tuberculin purified protein derivative 1998 [id number] 96 [facility] complet ed tuberculi n purified protein derivativ e 07/02/98 Given Ambulat ory Pharmac y influenza virus vaccine, whole virus [id number] 16 [facility] complet ed influenza virus vaccine, whole virus 07/02/98 Given Ambulat ory Pharmac y measles/mumps /rubella virus vaccine 1997 [id number] [facility] complet ed measles/m umps/rube lla virus vaccine 05/17/98 Given Ambulat ory Pharmac y hepatitis A adult vaccine 1997 [id number] 52 [employer] complet ed hepatitis A adult vaccine 11/06/97 Given Ambulat ory Pharmac y meningococcal polysaccharid e (MPSV4) [id number] 32 [facility] complet ed meningoco ccal polysacch aride (MPSV4) 11/06/97 Given Ambulat ory Pharmac y tuberculin purified protein derivative 1997 CON 96 [facility] complet ed tuberculi n purified protein derivativ e 08/14/97 Given Ambulat ory Pharmac y influenza virus vaccine, whole virus 1996 16 complet ed influenza virus vaccine, whole virus 05/24/97 Given Ambulat ory Pharmac y typhoid, parenteral, AKD 1996 53 complet ed typhoid, parentera l, AKD 08/16/96 Given Ambulat ory Pharmac y yellow fever vaccine 1996 37 complet ed yellow fever vaccine 08/16/96 Given Ambulat ory Pharmac y tetanus-dipht h toxoids (Td) adult/adol 1991 09 complet ed tetanus-d iphth toxoids (Td) adult/ado l 04/28/92 Given Ambulat ory Pharmac y tetanus-dipht h toxoids (Td) adult/adol 1991 09 complet ed tetanus-d iphth toxoids (Td) adult/ado l 11/02/91 Given Ambulat ory Pharmac y poliovirus vaccine, live, oral 1991 02 complet ed polioviru s vaccine, live, oral 07/04/91 Given Ambulat ory Pharmac y Results Combined list of recent chemistry, hematology and other laboratory results from Department of Defense and [facility], ranging from 15 months to all on record, depending upon the facility. Order Name Results Value Reference Range Date Interpretation Specimen Comments Source Infectio us Disease HIV-1/O/2 Non-Reac tive 2 ( 4 9:21 AM) 04/22 N Interpretiv e Data: INTERPRETAT ION: This method is a screening procedure for the detection of HIV p24 Antigen and Antibodies to HIV-1, including Group O, and/or HIV-2. NON-REACTIV E: HIV-1 antigen and HIV-1 / HIV-2 antibodies were not detected. No laboratory evidence of HIV infection. A negative test result does not exclude the possibility of exposure to or infection with HIV. HIV antibodies and/or p24 antigen may be undetectabl e in some stages of the infection and in some clinical conditions. If acute HIV infection is suspected, consider submitting another specimen to a reference laboratory for HIV-1 RNA. SCREEN REACTIVE - CONFIRMATIO N TO FOLLOW: Possible presence of HIV-1antibo dies, HIV-2 antibodies and/or HIV-1 p24 antigen. Specimen will reflex to the confirmatio n testing that fulfills the Center for Disease Control and Prevention' s HIV diagnostic algorithm. Refer to [facility] Guide for additional information : [email or web address] [email or web address] x Testing performed by [facility] Miscella neous [facility] Repository Sample Received ( 4 9:21 AM) 04/22 N [facility] Infectio us Disease HIV-1/O/2 Non-Reac tive 3 (07/04/23 9:20 AM) 07/04 N Interpretiv e Data: INTERPRETAT ION: This method is a screening procedure for the detection of HIV p24 Antigen and Antibodies to HIV-1, including Group O, and/or HIV-2. NON-REACTIV E: HIV-1 antigen and HIV-1 / HIV-2 antibodies were not detected. No laboratory evidence of HIV infection. A negative test result does not exclude the possibility of exposure to or infection with HIV. HIV antibodies and/or p24 antigen may be undetectabl e in some stages of the infection and in some clinical conditions. If acute HIV infection is suspected, consider submitting another specimen to a reference laboratory for HIV-1 RNA. SCREEN REACTIVE - CONFIRMATIO N TO FOLLOW: Possible presence of HIV-1antibo dies, HIV-2 antibodies and/or HIV-1 p24 antigen. Specimen will reflex to the confirmatio n testing that fulfills the Center for Disease Control and Prevention' s HIV diagnostic algorithm. Refer to [facility] Guide for additional information : [email or web address] [email or web address] [email or web address] x Testing performed by [facility] Miscella neous [facility] Repository Sample Received (07/04/23 9:20 AM) 07/04 N [facility] Infectio us Disease Rubella IgG Antibody Positive 6 ( 3 8:09 AM) 04/06 N Interpretiv e Data: NEGATIVE: Sample is considered negative for IgG antibodies to rubella virus. A negative result presumes that immunity has not been acquired. If exposure to rubella virus is suspected despite a negative finding, a second specimen should be collected and tested one or two weeks later. Seroconvers ion from a negative specimen to a positive specimen is evidence of either recent infection, response to vaccination , or administrat ion of immunoglobu loly. EQUIVOCAL: Please obtain additional specimen for re-testing. POSITIVE: Sample is considered positive for IgG antibodies to rubella virus. The results of this assay are not by themselves diagnostic. Diagnosis of infectious diseases should not be established on the basis of a single test result, but should be determined in conjunction with clinical findings and other diagnostic procedures as well as in association with medical judgment. The presence of IgM antibody to rubella virus should also be evaluated as part of the serological surveillanc e of individuals suspected of rubella virus infection, as the appearance of rubella IgG antibody may occur slightly later than that of rubella IgM antibody. Diagnosis of infectious diseases should not be established on the basis of a single test result, but should be determined in conjunction with clinical findings and other diagnostic procedures as well as in association with medical judgment. Human anti-mouse antibodies (HAMA) and other heterophile antibodies may be present in patient samples. Although patient specimens are washed away prior to the addition of the mouse monoclonal (conjugate) , the performance characteris tics of HAMA specimens have not been established and may occasionall y influence results. Carefully evaluate results from patients suspected of having such antibodies. Cross-react ivity could not be determined for HBsAg, measles IgG, mumps IgG, anti-HCV, anti-HIV-1/ 2, parvovirus IgG, gammaglobul in, rheumatoid factor and Treponema pallidum due to low prevalence of rubella antibody negative/cr oss-reactin g condition positive patients. The performance characteris tics of this assay have not been evaluated for use in pediatric populations . Methodology : Chemilumine scent immunoassay (CLIA) [facility] Infectio us Disease Mumps IgG Antibody Positive 5 ( 3 8:09 AM) 04/06 N Interpretiv e Data: NEGATIVE: Absence of detectable mumps virus IgG antibodies. A negative result generally indicates that the patient has not been infected and is susceptible to mumps. If the subject has no history of mumps, has not been previously vaccinated and exposure to mumps virus is suspected despite a negative finding, a second sample should be collected and tested no less than one to two weeks later. EQUIVOCAL: Submit a second sample no less than one or two weeks later. POSITIVE: Presence of detectable mumps virus IgG antibodies. A positive result generally indicates past exposure to mumps virus or previous vaccination . Diagnosis of a disease should be established based on the patient's anamnesis, in conjunction with clinical findings and in association with medical judgment. Any therapeutic decision must also be taken on a case-by-andrei e basis. Specimens from patients receiving preparation s of mouse monoclonal antibodies for therapy or diagnosis may contain human anti-mouse antibodies (HAMA). Such specimens may interfere in a monoclonal antibody-ba sed immunoassay and their results should be evaluated with care. Grossly hemolyzed, icteric or lipemic samples as well as samples containing particulate matter or exhibiting obvious microbial contaminati on are not recommended and should not be tested. Diagnosis of infectious diseases should not be established on the basis of a single test result, but should be determined in conjunction with previous infection history, clinical findings and other diagnostic procedures as well as in association with medical judgment. The performance characteris tics of this assay have not been evaluated for use in pediatric populations . Methodology : Chemilumine scent immunoassay (CLIA) [facility] Infectio us Disease VZV IgG Scrn Positive 1 ( 3 8:09 AM) 04/06 N Interpretiv e Data: NEGATIVE: Absence of detectable VZV IgG antibodies. A negative result indicates no detectable VZV antibody, but does not rule out acute infection. It should be noted that the test usually scores negative in infected patients during the incubation period and the early stages of infection. If exposure to varicella-z elder virus is suspected, despite a negative finding, a second sample should be collected and tested no less than one or two weeks later. EQUIVOCAL: Please obtain additional specimen for re-testing. POSITIVE: Presence of detectable VZV IgG antibodies. A positive result generally indicates exposure to the pathogen or administrat ion of specific immunoglobu loly, but it is no indication of active infection or stage of disease. The use of icteric or lipemic serum, or serum exhibiting hemolyzed or microbial growth should be avoided. The results from this assay are not by themselves diagnostic and should be considered in association with other clinical data and patient symptoms. Results from immunosuppr essed patients should be interpreted with caution. The performance characteris tics with individuals vaccinated with VZV (EMMANUEL Strain) have not been established . Diagnosis of infectious diseases should not be established on the basis of a single test result, but should be determined in conjunction with clinical findings and other diagnostic procedures as well as in association with medical judgment. Although patient samples are washed away prior to the addition of the mouse monoclonal antibody (conjugate) , the performance characteris tics of HAMA and rheumatoid factor samples have not been established and may occasionall y influence results. The performance characteris tics of this assay have not been evaluated for use in pediatric populations . Methodology : Chemilumine scent immunoassay (CLIA) [facility] Infectio us Disease Rubeola IgG Antibody Positive 4 ( 3 8:09 AM) 04/06 N Interpretiv e Data: NEGATIVE: Absence of detectable measles virus IgG antibodies. A negative result generally indicates that the patient has not been infected and is susceptible to measles. If the subject has no history of measles, has not been previously vaccinated and exposure to measles virus is suspected despite a negative finding, a second sample should be collected and tested within one to two weeks later. EQUIVOCAL: Submit a second sample no less than one or two weeks later. POSITIVE: Presence of detectable measles virus IgG antibodies. A positive result generally indicates exposure to measles virus or previous vaccination . False negative results may occur if samples are collected early in the disease. Diagnosis of a disease should be established based on the patient's anamnesis, in conjunction with clinical findings and in association with medical judgment. Any therapeutic decision must also be taken on a case-by-andrei e basis. Specimens from patients receiving preparation s of mouse monoclonal antibodies for therapy or diagnosis may contain human anti-mouse antibodies (HAMA). Such specimens may interfere in a monoclonal antibody-ba sed immunoassay and their results should be evaluated with care. Grossly hemolyzed, icteric or lipemic samples as well as samples containing particulate matter or exhibiting obvious microbial contaminati on are not recommended and should not be tested. Diagnosis of infectious diseases should not be established on the basis of a single test result, but should be determined in conjunction with previous infection history, clinical findings and other diagnostic procedures as well as in association with medical judgment. The performance characteris tics of this assay have not been evaluated for use in pediatric populations . Methodology : Chemilumine scent immunoassay (CLIA) [facility] Vital Signs Combined list of inpatient and outpatient Vital Signs from [facility] and [facility], ranging from 12 months to all on record, depending upon the facility. Vital Sign Value Date Comments Source No data available for this section Ambulatory Pharmacy Encounters Combined list of: 1) Encounters from [facility] facilities going back up to thelast 18 months. 2) Encounters from the Department [facility] facilities going back up to 280 months. Location Location Details Encounter Type Encounter Number Reason For Visit Attending Provider ADM Date DC Date Status Disposition Source Theater Facility OUTPATIENT [id number] Theater Provider 02/20 Released w/o Limitations Theater Facilit [facility] Theater Facility OUTPATIENT [id number] Theater Provider 07/04 Released w/o Limitations Theater Facilit y [id number] [facility] Outpatient [id number] VIDHI DUMONTVianca 04/25 Discharge Disposition: Home or Self Care [id number] [facility] Procedures Combined list of: 1) Procedures from [facility] facilities going back up to thelast 18 months, not all [place] non-surgical procedures are included; 2) All procedures from the Department [facility] facilities. Procedure Procedure Type Code Date Perfomer Comments Sourc e No data available for this section Ambulatory P harmacy Social History Combined list of available smoking, tobacco, and other social history from [facility] and [facility] facilities. Social History Type Response Date Comment Sourc e This section is an empty social history section. DoD Assessment and Plan Combined list of future care activities from Department of Defense and Veterans Affairs facilities (e.g., assessment and plan notes, appointments, orders, and referrals). Additional future care activities may be listed in the Plan of Care section. Result Assessment and Plan Date Source Assessment and Plan No data available for this section 07/10/2024 Ambulatory Pharmacy Functional Status Combined list of recent functional and cognitive assessments recorded at [facility] [place] Functional [place] Measurement (FIM) Scale: 1 = Total Assistance (Subject = 0% +), 2 = Maximal Assistance (Subject = 25% +), 3 = Moderate Assistance (Subject = 50% +), 4 = Minimal Assistance (Subject = 75% +), 5 = Supervision, 6 = Modified [place] (Device), 7 = Complete [place] (Timely, Safely). Assessment Date/Time Source Assessment Type Assessment Skill Assessment Score Assessment Details No data available for this section
== END 2024-07-10 13:08 | disposition home or self-care (01) ==
PROVIDERS: PCP Family Medicine; Visit Provider Family Medicine
DX: M25.512 Pain in left shoulder (principal); E78.5 Hyperlipidemia, unspecified

== ENCOUNTER 2024-07-14 14:02 | Outpatient (REF) | payer BC, SELFPAY ==
--- NOTE | ~2024-07-14 | XR_ITS ---
CLINICAL HISTORY: M25.512 - Pain in left shoulder 4 view left shoulder Comparison: None Findings: No fractures or dislocations. Small cystic changes in the greater tuberosity. Tiny AC joint osteophyte. Jtxi-jp-fisgnfzg narrowing of the glenohumeral joint. No erosions. No radiopaque foreign body. IMPRESSION: 1. No acute findings This document has been electronically signed by: Norma Pryor MD on 07/15/2024 09:38:41
--- OUTSIDE RECORDS SUMMARY | 2024-07-14 16:05 | XMS_ITS | Continuity of Care Document ---
Author Name [facility] Organization [facility] Care Team Providers Care Catalogue Illustrator Name Role Phone [facility] Unavailable Unavailable Problems Combined list of problems from Department of Defense and Veterans Affairs facilities. It does not include entries that were removed or entered in error. Problem Status Onset Date Problem Type Date of Resolution Comments Source ASSESSMENT, POST-DEPLOYMENT, DOCUMENTED ON [id number] Inactive 07/04/2016 Condition DoD Encounter for other administrative examinations Inactive 07/04/2016 Condition DoD epistaxis Inactive 02/21/2016 Condition DoD Immunizations Combined list of available immunizations from the Department of Defense and Veterans Affairs facilities. Immunization Series Date Given Administered By Site Reaction Lot Number CVX Code Drug Veneer Sheet Repairer Status Comments Source tetanus, diphtheria, acellular pertu is 2021 [id number] sanofi pasteur complet ed tetanus, diphtheri a, acellular pertussis 04/28/22 Given Ambulat ory Pharmac y influenza, injectable, quadrivalent- pf 2021 [id number] GlaxoSmithKli ne complet ed influenza , injectabl e, quadrival ent-pf 04/08/22 Given Ambulat ory Pharmac y influenza virus vaccine, inactivated 2020 [id number] Seqirus complet ed influenza virus vaccine, inactivat ed 04/30/21 Given Ambulat ory Pharmac y COVID Vaccine Moderna 2020 [id number] complet ed COVID Vaccine Moderna 08/19/20 Given Ambulat ory Pharmac y COVID Vaccine Moderna 2020 [id number] complet ed COVID Vaccine Moderna 07/18/20 Given Ambulat ory Pharmac y influenza, injectable, quadrivalent- pf 2019 [id number] 150 Seqirus complet ed influenza , injectabl e, quadrival ent-pf 05/01/20 Given Ambulat ory Pharmac y influenza, injectable, quadrivalent- pf 2018 [id number] 150 Seqirus complet ed influenza , injectabl e, quadrival ent-pf 05/30/19 Given Ambulat ory Pharmac y influenza, injectable, quadrivalent- pf 2017 [id number] 150 Seqirus complet ed influenza , injectabl e, quadrival ent-pf 05/31/18 Given Ambulat ory Pharmac y influenza, seasonal, injectable 2016 [id number] complet ed influenza , seasonal, injectabl e 04/08/17 Given Ambulat ory Pharmac y tuberculin purified protein derivative 2016 [id number] 96 sanofi pasteur complet ed tuberculi n purified protein derivativ e 12/30/16 Given Ambulat ory Pharmac y anthrax vaccine 2015 [id number] 24 [employer] complet ed anthrax vaccine 05/24/16 Given Ambulat ory Pharmac y influenza, seasonal, injectable 2015 [id number] 141 Seqirus complet ed influenza , seasonal, injectabl e 05/07/16 Given Ambulat ory Pharmac y yellow fever vaccine 2015 [id number] 37 sanofi pasteur complet ed yellow fever vaccine 03/27/16 Given Ambulat ory Pharmac y meningococcal A,C,Y,W-135 (MCV4P) 2015 [id number] 114 sanofi pasteur complet ed meningoco ccal A,C,Y,W-1 35 (MCV4P) 03/27/16 Given Ambulat ory Pharmac y poliovirus vaccine, inactivated 2015 [id number] 10 Unknown complet ed polioviru s vaccine, inactivat ed 03/27/16 Given Ambulat ory Pharmac y anthrax vaccine 2015 [id number] 24 [employer] complet ed anthrax vaccine 12/23/15 Given Ambulat ory Pharmac y anthrax vaccine 2015 [id number] 24 [employer] complet ed anthrax vaccine 11/25/15 Given Ambulat ory Pharmac y measles/mumps /rubella virus vaccine 2015 [id number] Merck [employer] Inc complet ed measles/m umps/rube lla virus vaccine 11/25/15 Given Ambulat ory Pharmac y typhoid Vi capsular polysaccharid e vac 2015 [id number] sanofi pasteur complet ed typhoid Vi capsular polysacch aride vac 11/25/15 Given Ambulat ory Pharmac y influenza, seasonal, injectable-pf 2014 [id number] 140 CSL [employer] complet ed influenza , seasonal, injectabl e-pf 04/28/15 Given Ambulat ory Pharmac y hepatitis B adult vaccine 2014 [id number] [employer]ck [employer] complet ed hepatitis B adult vaccine 07/04/14 Given Ambulat ory Pharmac y influenza, seasonal, injectable-pf 2013 [id number] 140 CSL [employer]ring complet ed influenza , seasonal, injectabl e-pf 03/28/14 Given Ambulat ory Pharmac y hepatitis B adult vaccine 2013 [id number] 43 [employer] complet ed hepatitis B adult vaccine 01/03/14 Given Ambulat ory Pharmac y hepatitis B adult vaccine 2013 [id number] 43 [employer] complet ed hepatitis B adult vaccine 11/29/13 Given Ambulat ory Pharmac y influenza, seasonal, injectable-pf 2012 [id number] 140 sanofi pasteur complet ed influenza , seasonal, injectabl e-pf 03/17/13 Given Ambulat ory Pharmac y influenza, seasonal, injectable-pf 2011 [id number] 140 C[employer] complet ed influenza , seasonal, injectabl e-pf 04/06/12 Given Ambulat ory Pharmac y tetanus, diphtheria, acellular pertu is 2011 [id number] 115 sanofi pasteur complet ed tetanus, diphtheri a, acellular pertussis 04/06/12 Given Ambulat ory Pharmac y influenza, seasonal, injectable-pf 2010 [id number] 140 C[employer] complet ed influenza , seasonal, injectabl e-pf 03/25/11 Given Ambulat ory Pharmac y influenza virus vaccine, live 2009 [id number] 111 [employer] comple t ed influenza virus vaccine, live 04/29/10 Given Ambulat ory Pharmac y Novel influenza-H1N 1-09, injectable 2009 [id number] 127 Novartis Pharmaceutica ls complet ed Novel influenza -L2O6-68, injectabl e 07/17/09 Given Ambulat ory Pharmac y typhoid Vi capsular polysaccharid e vac 2008 [id number] sanofi pasteur complet ed typhoid Vi capsular polysacch aride vac 03/26/09 Given Ambulat ory Pharmac y influenza virus vaccine, live 2008 [id number] 111 [facility] [facility] comple t ed influenza virus vaccine, [...] ory Pharmac y influenza virus vaccine,split 2005 [id number] 15 Unknown complet ed influenza virus vaccine,s plit 05/26/06 Given Ambulat ory Pharmac y influenza virus vaccine,split 2004 [id number] 15 sanofi pasteur complet ed influenza virus vaccine,s plit 05/27/05 Given Ambulat ory Pharmac y tuberculin purified protein derivative 2003 [id number] 96 sanofi pasteur complet ed tuberculi n purified protein derivativ e 09/11/03 Given Ambulat ory Pharmac y influenza virus vaccine, whole virus 2002 [id number] 16 sanofi pasteur complet ed influenza virus vaccine, whole virus 04/25/03 Given Ambulat ory Pharmac y tetanus-dipht h toxoids (Td) adult/adol 2002 [id number] 09 sanofi pasteur complet ed tetanus-d iphth toxoids (Td) adult/ado l 07/19/02 Given Ambulat ory Pharmac y typhoid vaccine, parenteral 2002 [id number] sanofi pasteur complet ed typhoid vaccine, parentera l 07/19/02 Given Ambulat ory Pharmac y influenza virus vaccine, whole virus 2002 [id number] 16 sanofi pasteur complet ed influenza virus vaccine, whole virus 07/19/02 Given Ambulat ory Pharmac y tuberculin purified protein derivative 2001 [id number] 96 sanofi pasteur complet ed tuberculi n purified protein derivativ e 02/24/02 Given Ambulat ory Pharmac y tuberculin purified protein derivative 2000 [id number] 96 sanofi pasteur complet ed tuberculi n purified protein derivativ e 05/26/01 Given Ambulat ory Pharmac y influenza virus vaccine, whole virus 2000 [id number] 16 sanofi pasteur complet ed influenza virus vaccine, whole virus 05/14/01 Given Ambulat ory Pharmac y tuberculin purified protein derivative 2000 [id number] 96 [facility] complet ed tuberculi n purified protein derivativ e 07/14/00 Given Ambulat ory Pharmac y influenza virus vaccine, whole virus 2000 [id number] 16 [facility] complet ed influenza virus vaccine, whole virus 06/29/00 Given Ambulat ory Pharmac y typhoid vaccine, parenteral 1999 [id number] 41 [facility] complet ed typhoid vaccine, parentera l 01/13/00 Given Ambulat ory Pharmac y influenza virus vaccine, whole virus [id number] 16 [facility] complet ed influenza virus vaccine, whole virus 05/25/99 Given Ambulat ory Pharmac y tuberculin purified protein derivative 1998 [id number] 96 [facility] complet ed tuberculi n purified protein derivativ e 07/05/98 Given Ambulat ory Pharmac y hepatitis A adult vaccine 1998 [id number] 52 [employer] complet ed hepatitis A adult vaccine 07/02/98 Given Ambulat ory Pharmac y tuberculin purified protein derivative 1998 [id number] 96 [facility] complet ed tuberculi n purified protein derivativ e 07/02/98 Given Ambulat ory Pharmac y influenza virus vaccine, whole virus [id number] 16 [facility] complet ed influenza virus vaccine, whole virus 07/02/98 Given Ambulat ory Pharmac y measles/mumps /rubella virus vaccine 1997 [id number] [facility] complet ed measles/m umps/rube lla virus vaccine 05/17/98 Given Ambulat ory Pharmac y hepatitis A adult vaccine 1997 [id number] 52 [employer] complet ed hepatitis A adult vaccine 11/06/97 Given Ambulat ory Pharmac y meningococcal polysaccharid e (MPSV4) [id number] 32 [facility] complet ed meningoco ccal polysacch aride [...] Prevention' s HIV diagnostic algorithm. Refer to [facility] Lab Guide for additional information : [email or web address] [email or web address] x Testing performed by [facility] Miscella neous SendSurveypal Repository Sample Received ( 4 9:21 AM) [...] Prevention' s HIV diagnostic algorithm. Refer to [facility] Lab Guide for additional information : [email or web address] [email or web address] x Testing performed by [facility]. [facility] Miscella neous SendSurveypal Repository Sample Received (07/04/23 9:20 AM) 07/04 [...] and outpatient Vital Signs from Department of [facility] and Veterans Affairs, ranging from 12 months to all on record, depending upon the facility. Vital Sign Value Date Comments Source No data available for this section Ambulatory Pharmacy Encounters Combined list of: 1) Encounters from Department of Veterans [facility] facilities going back up to thelast 18 months. 2) Encounters from the Department of [facility] facilities going back up to 280 months. Location Location Details Encounter Type Encounter Number Reason For Visit Attending Provider ADM Date DC Date Status Disposition Source Theater Facility OUTPATIENT [id number] Theater Provider 02/20 Released w/o Limitations Theater Facilit y Theater Facility OUTPATIENT [id number] Theater Provider 07/04 Released w/o Limitations Theater Facilit y [id number] [facility] Outpatient [id number] VIDHI DUMONTVianca 04/25 Discharge Disposition: Home or Self Care [id number] [id number] [facility] Procedures Combined list of: 1) Procedures from Department of [facility] facilities going back up to thelast 18 months, not all MD non-surgical procedures are included; 2) All procedures from the Department [facility] facilities. Procedure Procedure Type Code Date Perfomer Comments Sourc e No data available for this section Ambulatory P harmacy Social History Combined list of available smoking, tobacco, and other social history from Department of Defense and Veterans [facility] facilities. Social History Type Response Date Comment Sourc e This section is an empty social history section. [facility] Assessment and Plan Combined list of future care activities from Department of Defense and Veterans Affairs facilities (e.g., assessment and plan notes, appointments, orders, and referrals). Additional future care activities may be listed in the Plan of Care section. Result Assessment and Plan Date Source Assessment and Plan Future Appointments Appointment Date: 07/25/2024 01:30:00 PM Scheduled Provider: Location: [address] [place] [address] Appointment Type: Dental Visit 07/14/2024 Ambulatory Pharmacy Functional Status Combined list of recent functional and cognitive assessments recorded at Department of Defense and Veterans Affairs (MD).VA Functional [place] Measurement (FIM) Scale: 1 = Total Assistance (Subject = 0% +), 2 = Maximal Assistance (Subject = 25% +), 3 = Moderate Assistance (Subject = 50% +), 4 = Minimal Assistance (Subject = 75% +), 5 = Supervision, 6 = Modified [place] (Device), 7 = Complete [place] (Timely, Safely). Assessment Date/Time Source Assessment Type Assessment Skill Assessment Score Assessment Details No data available for this section
== END 2024-07-14 14:03 | disposition home or self-care (01) ==
LOC: HO.XRAY 14:02
PROVIDERS: PCP Family Medicine; Visit Provider Family Medicine
DX: M25.512 Pain in left shoulder (principal)
CPT/HCPCS: 73030

== ENCOUNTER → 2024-07-14 14:09 | Outpatient (BNV) | payer BC, SELFPAY | PROVIDERS: PCP Family Medicine; Visit Provider Radiology Diagnostic Radiology | DX: M25.512 Pain in left shoulder (principal) | CPT/HCPCS: 73030 ==

== ENCOUNTER 2024-07-27 14:15 | Outpatient (AMB) | payer BC, SELFPAY ==
--- NOTE | 2024-07-27 14:11 | MHC.PC.OV ---
Intake Visit Reasons: f/u x-rays via telemedicine Intake Note: Xray results and blood work results. Referral to hat cone inspector, spot on head. Sample Preparation Supervisor Required: No Allergies No Known Allergies Allergy (Verified 07/27/24 14:11) Medication List - Last Reconciled 07/27/24 by Gagna Bullock MD atorvastatin 20 mg PO DAILY 90 days pyridoxine (vitamin B6) 100 mg PO DAILY tadalafil (Cialis) 5 mg PO DAILY tamsulosin (Flomax) 0.4 mg PO BEDTIME 30 days Tobacco use date assessed: 07/27/24 Dental Screening Dental Screen Date: 12/13/22 HPI f/u x-rays via telemedicine HPI Details 54 y/o male presents to f/u shoulder x-ray via telemedicine. Shoulder x-ray 07/15/24 showed no acute findings. Per note: No fractures or dislocations. Small cystic changes in the greater tuberosity. Tiny AC joint osteophyte. Cwjq-up-rmlnmvow narrowing of the glenohumeral joint. No erosions. No radiopaque foreign body. He notes he continues to be reluctant to take any statins for his lipids. He notes a spot on his head that has gotten bigger. Would like a referral to a hat cone inspector. He reports ongoing chest pressure. [facility] Medical History Erectile dysfunction due to arterial insufficiency Weak urinary stream Surgical History Hx of cystoscopy History of surgery Family History (Updated 07/27/24 @ 14:13 by Virginia Velasquez CMA) Mother Colon cancer Sister Cervical ca Social History (Updated 07/27/24 @ 14:13 by Virginia Velasquez CMA) Housing: House Alcohol intake: current Patient Tobacco Use Status: Former Tobacco user Tobacco use type: Cigarette Cigarettes Per Day: 20 Years Smoked: 30 e-Cigarette/Vaping Use: Never Used Second Hand Smoke Exposure: No service: Yes Current occupational status: employed Current occupational exposures/hazards: No Cognitive needs: No Hearing needs: No Vision needs: No Questionnaire Thrive Questionnaire Date Thrive assessed: 06/21/22 OLGA-7 AMB Questionnaire OLGA-7 Date OLGA - 7 assessed: 06/21/22 Source: Developed by Drs. Vineet L. MariaConchita curiel, Elliot Brush and colleagues, with an educational julio from [employer]. Review of Systems Const Denies chills, Denies fatigue, Denies fever(s), Denies headache(s) and Denies weakness ENT Denies dizziness and Denies headache(s) Card Denies dyspnea Resp Denies cough, Denies dyspnea, Denies wheezing and Denies other (shortness of breath) Musc Denies numbness and Denies tingling Neuro Denies dizziness, Denies headache(s), Denies numbness, Denies tingling and Denies weakness Psych Denies anxiety and Denies depression Endo Denies fatigue Aller/Immun Denies wheezing Physical exam (Primary Care) Tobacco/Smoking Status: Tobacco use Status Tobacco use date assessed 07/27/24 07/27/24 14:14 Patient Tobacco Use Status Former Tobacco user 07/27/24 14:14 Tobacco use type Cigarette 07/27/24 14:14 e-Cigarette/Vaping Use Never Used 07/27/24 14:14 Thrive Assessment: Date of Thrive Assessment Date Thrive assessed 06/21/22 07/27/24 14:14 Telehealth Telehealth Telehealth Platform: Telephone Location of provider rendering services: practice address Location of patient: address on file Patient Identification confirmed using: Name, : No Telehealth method: voice only Patient verbally consented to treatment: Yes Patient verbally consented to billing insurance company: Yes Patient informed of any privacy concerns related to visit: Yes Minutes spent on Phone/Video with Pt.: 12 Coding Level of Care Code Tele Est Pt Level 2 (29441) Diagnoses Left shoulder pain M25.512 Hyperlipidemia E78.5 Neoplasm of uncertain behavior of skin D48.5 Chest pressure R07.89 Assessment & Plan Assessment & Plan (1) Left shoulder pain: Code(s): M25.512 - Pain in left shoulder Category: Medical Plan: X-ray?does?not?show?any?acute?bony?injury He?has?an?upcoming?appointment?with?Ortho?on?the?24th Follow-up?with?ortho?as?recommended (2) Hyperlipidemia: Code(s): E78.5 - Hyperlipidemia, unspecified Category: Medical Plan: LDL?cholesterol?has?been?to?high.??Patient?has?been?working?on?this. I?do?not?have?the?results?of?his?lab?work?however?patient?says?that?his?LDL?is?still?high?in?the?140s. 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 Referred?to?dermatology?for?lesion?on?his?scalp (4) Chest pressure: Code(s): R07.89 - Other chest pain Category: Medical Plan: Patient?notes?that?he?still?does?get?chest?pressure. Has?seen?cardiology?and?a?coronary?calcium?score?was?ordered. Advised?he follow-up?with?Cardiology Orders: Orders Lipid Panel Today E78.5 - Hyperlipidemia, unspecified, Z00.00 - Encounter for general adult medical examination without abnormal findings Comprehensive [place]. Panel Fast Today E78.5 - Hyperlipidemia, unspecified, Z00.00 - Encounter for general adult medical examination without abnormal findings Referrals Dermatology Referral D48.5 - Neoplasm of uncertain behavior of skin Medications: New atorvastatin 20 mg PO DAILY 90 days 90 tabs 3RF
--- OUTSIDE RECORDS SUMMARY | 2024-07-27 15:53 | XMS_ITS | Continuity of Care Document ---
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 It does not include entries that were removed or entered in error. Problem Status Onset Date Problem Type Date of Resolution Comments Source ASSESSMENT, POST-DEPLOYMENT, DOCUMENTED ON [id number] Inactive 07/04/2016 Condition DoD Encounter for other administrative examinations Inactive 07/04/2016 Condition DoD epistaxis Inactive 02/21/2016 Condition DoD Immunizations Combined list of available immunizations from the Department of Defense and Veterans Affairs facilities. Immunization Series Date Given Administered By Site Reaction Lot Number CVX Code Drug Application Integration Engineer Status Comments Source tetanus, diphtheria, acellular pertu is 2021 [id number] sanofi pasteur complet ed tetanus, diphtheri a, acellular pertussis 04/28/22 Given Ambulat ory Pharmac y influenza, injectable, quadrivalent- pf 2021 [id number] GlaxoSmithKli ne complet ed influenza , injectabl e, quadrival ent-pf 04/08/22 Given Ambulat ory Pharmac y influenza virus vaccine, inactivated 2020 [id number] Seqirus complet ed influenza virus vaccine, inactivat ed 04/30/21 Given Ambulat ory Pharmac y COVID Vaccine Moderna 2020 [id number] complet ed COVID Vaccine Moderna 08/19/20 Given Ambulat ory Pharmac y COVID Vaccine Moderna 2020 [id number] complet ed COVID Vaccine Moderna 07/18/20 Given Ambulat ory Pharmac y influenza, injectable, quadrivalent- pf 2019 [id number] 150 Seqirus complet ed influenza , injectabl e, quadrival ent-pf 05/01/20 Given Ambulat ory Pharmac y influenza, injectable, quadrivalent- pf 2018 [id number] 150 Seqirus complet ed influenza , injectabl e, quadrival ent-pf 05/30/19 Given Ambulat ory Pharmac y influenza, injectable, quadrivalent- pf 2017 [id number] 150 Seqirus complet ed influenza , injectabl e, quadrival ent-pf 05/31/18 Given Ambulat ory Pharmac y influenza, seasonal, injectable 2016 [id number] complet ed influenza , seasonal, injectabl e 04/08/17 Given Ambulat ory Pharmac y tuberculin purified protein derivative 2016 [id number] 96 sanofi pasteur complet ed tuberculi n purified protein derivativ e 12/30/16 Given Ambulat ory Pharmac y anthrax vaccine 2015 [id number] 24 [employer] complet ed anthrax vaccine 05/24/16 Given Ambulat ory Pharmac y influenza, seasonal, injectable 2015 [id number] 141 Seqirus complet ed influenza , seasonal, injectabl e 05/07/16 Given Ambulat ory Pharmac y yellow fever vaccine 2015 [id number] 37 sanofi pasteur complet ed yellow fever vaccine 03/27/16 Given Ambulat ory Pharmac y meningococcal A,C,Y,W-135 (MCV4P) 2015 [id number] 114 sanofi pasteur complet ed meningoco ccal A,C,Y,W-1 35 (MCV4P) 03/27/16 Given Ambulat ory Pharmac y poliovirus vaccine, inactivated 2015 [id number] 10 Unknown complet ed polioviru s vaccine, inactivat ed 03/27/16 Given Ambulat ory Pharmac y anthrax vaccine 2015 [id number] 24 [employer] complet ed anthrax vaccine 12/23/15 Given Ambulat ory Pharmac y anthrax vaccine 2015 [id number] 24 [employer] complet ed anthrax vaccine 11/25/15 Given Ambulat ory Pharmac y measles/mumps /rubella virus vaccine 2015 [id number] Merck [employer] Inc complet ed measles/m umps/rube lla virus vaccine 11/25/15 Given Ambulat ory Pharmac y typhoid Vi capsular polysaccharid e vac 2015 [id number] sanofi pasteur complet ed typhoid Vi capsular polysacch aride vac 11/25/15 Given Ambulat ory Pharmac y influenza, seasonal, injectable-pf 2014 [id number] 140 CSL [employer]ring complet ed influenza , seasonal, injectabl e-pf 04/28/15 Given Ambulat ory Pharmac y hepatitis B adult vaccine 2014 [id number] [employer]ck [employer] complet ed hepatitis B adult vaccine 07/04/14 Given Ambulat ory Pharmac y influenza, seasonal, injectable-pf 2013 [id number] 140 CSL [employer]ring complet ed influenza , seasonal, injectabl e-pf 03/28/14 Given Ambulat ory Pharmac y hepatitis B adult vaccine 2013 [id number] 43 [employer] complet ed hepatitis B adult vaccine 01/03/14 Given Ambulat ory Pharmac y hepatitis B adult vaccine 2013 [id number] 43 [employer] complet ed hepatitis B adult vaccine 11/29/13 Given Ambulat ory Pharmac y influenza, seasonal, injectable-pf 2012 [id number] 140 sanofi pasteur complet ed influenza , seasonal, injectabl e-pf 03/17/13 Given Ambulat ory Pharmac y influenza, seasonal, injectable-pf 2011 [id number] 140 [employer] complet ed influenza , seasonal, injectabl e-pf 04/06/12 Given Ambulat ory Pharmac y tetanus, diphtheria, acellular pertu is 2011 [id number] 115 sanofi pasteur complet ed tetanus, diphtheri a, acellular pertussis 04/06/12 Given Ambulat ory Pharmac y influenza, seasonal, injectable-pf 2010 [id number] 140 C[employer] complet ed influenza , seasonal, injectabl e-pf 03/25/11 Given Ambulat ory Pharmac y influenza virus vaccine, live 2009 [id number] [employer] comple t ed influenza virus vaccine, live 04/29/10 Given Ambulat ory Pharmac y Novel influenza-H1N 1-09, injectable 2009 [id number] 127 Novartis Pharm[employer] ls complet ed Novel influenza -S4F5-13, injectabl e 07/17/09 Given Ambulat ory Pharmac y typhoid Vi capsular polysaccharid e vac 2008 [id number] sanofi pasteur complet ed typhoid Vi capsular polysacch aride vac 03/26/09 Given Ambulat ory Pharmac y influenza virus vaccine, live 2008 [id number] 111 iubenda [facility] comple t ed influenza virus vaccine, live [...] ory Pharmac y influenza virus vaccine,split 2005 [id number] 15 Unknown complet ed influenza virus vaccine,s plit 05/26/06 Given Ambulat ory Pharmac y influenza virus vaccine,split 2004 [id number] 15 sanofi pasteur complet ed influenza virus vaccine,s plit 05/27/05 Given Ambulat ory Pharmac y tuberculin purified protein derivative 2003 [id number] 96 sanofi pasteur complet ed tuberculi n purified protein derivativ e 09/11/03 Given Ambulat ory Pharmac y influenza virus vaccine, whole virus 2002 [id number] 16 sanofi pasteur complet ed influenza virus vaccine, whole virus 04/25/03 Given Ambulat ory Pharmac y tetanus-dipht h toxoids (Td) adult/adol 2002 [id number] 09 sanofi pasteur complet ed tetanus-d iphth toxoids (Td) adult/ado l 07/19/02 Given Ambulat ory Pharmac y typhoid vaccine, parenteral 2002 [id number] sanofi pasteur complet ed typhoid vaccine, parentera l 07/19/02 Given Ambulat ory Pharmac y influenza virus vaccine, whole virus 2002 [id number] 16 sanofi pasteur complet ed influenza virus vaccine, whole virus 07/19/02 Given Ambulat ory Pharmac y tuberculin purified protein derivative 2001 [id number] 96 sanofi pasteur complet ed tuberculi n purified protein derivativ e 02/24/02 Given Ambulat ory Pharmac y tuberculin purified protein derivative 2000 [id number] 96 sanofi pasteur complet ed tuberculi n purified protein derivativ e 05/26/01 Given Ambulat ory Pharmac y influenza virus vaccine, whole virus 2000 [id number] 16 sanofi pasteur complet ed influenza virus vaccine, whole virus 05/14/01 Given Ambulat ory Pharmac y tuberculin purified protein derivative 2000 [id number] 96 [facility] ed tuberculi n purified protein derivativ e 07/14/00 Given Ambulat ory Pharmac y influenza virus vaccine, whole virus 2000 [id number] 16 [facility] ed influenza virus vaccine, whole virus 06/29/00 Given Ambulat ory Pharmac y typhoid vaccine, parenteral 1999 [id number] 41 [facility] complet ed typhoid vaccine, parentera l 01/13/00 Given Ambulat ory Pharmac y influenza virus vaccine, whole virus [id number] 16 [facility] complet ed influenza virus vaccine, whole virus 05/25/99 Given Ambulat ory Pharmac y tuberculin purified protein derivative 1998 [id number] 96 [facility] complet ed tuberculi n purified protein derivativ e 07/05/98 Given Ambulat ory Pharmac y hepatitis A adult vaccine 1998 [id number] [employer] complet ed hepatitis A adult vaccine 07/02/98 Given Ambulat ory Pharmac y tuberculin purified protein derivative 1998 [id number] 96 [facility] complet ed tuberculi n purified protein derivativ e 07/02/98 Given Ambulat ory Pharmac y influenza virus vaccine, whole virus [id number] 16 [facility] complet ed influenza virus vaccine, whole virus 07/02/98 Given Ambulat ory Pharmac y measles/mumps /rubella virus vaccine 1997 [id number] [facility] complet ed measles/m umps/rube lla virus vaccine 05/17/98 Given Ambulat ory Pharmac y hepatitis A adult vaccine 1997 [id number] 52 [employer] complet ed hepatitis A adult vaccine 11/06/97 Given Ambulat ory Pharmac y meningococcal polysaccharid e (MPSV4) [id number] [facility] complet ed meningoco ccal polysacch aride [...] Prevention' s HIV diagnostic algorithm. Refer to [facility] Lab Guide for additional information : [email or web address]/ kj/[email or web address]/EPIL [email or web address]/la [email or web address].asp x Testing performed by [facility] Miscella neous [facility] Repository Sample Received ( 4 9:21 AM) [...] Prevention' s HIV diagnostic algorithm. Refer to [facility] Lab Guide for additional information : [email or web address]/ [email or web address]/[email or web address]/EPIL [email or web address] [email or web address].asp x Testing performed by [facility] [place] [facility] Miscella neous [facility] Repository Sample Received (07/04/23 9:20 AM) 07/04 [...] pathogen or administrat ion of specific immunoglobu lloy, but it is no indication of active [...] and outpatient Vital Signs from [facility] and [facility], ranging from 12 months to all on record, depending upon the facility. Vital Sign Value Date Comments Source No data available for this section Ambulatory Pharmacy Encounters Combined list of: 1) Encounters from [facility] of [facility] facilities going back up to thelast 18 months. 2) Encounters from the Department [facility] facilities going back up to 280 months. Location Location Details Encounter Type Encounter Number Reason For Visit Attending Provider ADM Date DC Date Status Disposition Source Theater Facility OUTPATIENT [id number] Theater Provider 02/20 Released w/o Limitations Theater Facilit y Theater Facility OUTPATIENT [id number] Theater Provider 07/04 Released w/o Limitations Theater Facilit y [id number] [facility] Outpatient [id number] VIDHI DUMONTVianca 04/25 Discharge Disposition: Home or Self Care [id number] [facility] Procedures Combined list of: 1) Procedures from [facility] facilities going back up to thelast 18 months, not all [place] non-surgical procedures are included; 2) All procedures from the Department [facility] facilities. Procedure Procedure Type Code Date Perfomer Comments Sourc e No data available for this section Ambulatory P harmacy Social History Combined list of available smoking, tobacco, and other social history from Department of Defense and [facility] facilities. Social History Type Response Date [...] Plan No data available for this section 07/27/2024 Ambulatory Pharmacy Functional Status Combined list of recent functional and cognitive assessments recorded at [facility] ([place] Functional [place] Measurement (FIM) Scale: 1 = Total Assistance (Subject = 0% +), 2 = Maximal Assistance (Subject = 25% +), 3 = Moderate Assistance (Subject = 50% +), 4 = Minimal Assistance (Subject = 75% +), 5 = Supervision, 6 = Modified [place] (Device), 7 = Complete [place] (Timely, Safely). Assessment Date/Time Source Assessment Type Assessment Skill Assessment Score Assessment Details No data available for this section
== END 2024-07-27 17:05 | disposition home or self-care (01) ==
LOC: HO.HMCFM 14:15
PROVIDERS: PCP Family Medicine; Visit Provider Family Medicine
DX: M25.512 Pain in left shoulder (principal); E78.5 Hyperlipidemia, unspecified; D48.5 Neoplasm of uncertain behavior of skin; R07.89 Other chest pain

== ENCOUNTER → 2024-07-27 14:15 | Outpatient (BNVA) | payer BC, SELFPAY | PROVIDERS: PCP Family Medicine; Visit Provider Family Medicine ==

== ENCOUNTER 2024-08-17 12:50 | Outpatient (AMB) | payer BC, SELFPAY ==
--- NOTE | 2024-08-17 12:55 | MHC.OFFVIS ---
Vital Signs 08/17/24 12:56 Height 5 ft 9 in Weight 200 lb 2 oz BMI 29.6 Intake Visit Reasons: Left shoulder pain and weakness Intake Note: Jaquan is a 54 year old left hand dominant male who presents with complaints of progressively worsening left shoulder pain and weakness. 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 He was lifting a 70 lb object when he had acute onset of pain. Since that time he has done formal physical therapy which gave him minimal relief. He reports weakness when lifting his left hand above shoulder height. He has tried Tylenol and anti-inflammatory medicines which gave him minimal relief. Allergies No Known Allergies Allergy (Verified 08/17/24 12:57) Medication List - Last Reconciled 08/17/24 by Shantanu Oliver MD atorvastatin 20 mg PO DAILY 90 days tadalafil (Cialis) 5 mg PO DAILY tamsulosin (Flomax) 0.4 mg PO BEDTIME 30 days [facility] Medical History Erectile dysfunction due to arterial insufficiency Weak urinary stream Surgical History Hx of cystoscopy History of surgery Family History (Updated 07/27/24 @ 14:13 by Virginia Velasquez CMA) Mother Colon cancer Sister Cervical ca Social History (Updated 08/17/24 @ 12:59 by DONNA Jarvis) Housing: House Alcohol intake: current Patient Tobacco Use Status: Former Tobacco user Tobacco use type: Cigarette Cigarettes Per Day: 20 Years Smoked: 30 e-Cigarette/Vaping Use: Never Used Second Hand Smoke Exposure: No service: Yes Current occupational status: employed Current occupation: left handed, [employer] Current occupational exposures/hazards: No Cognitive needs: No Hearing needs: No Vision needs: No Physical Exam Vital Signs: BMI result Body Mass Index 29.6 Const Other: Well-nourished well-developed very friendly male awake alert and oriented x3 in no acute distress Extrem Other: Left shoulder examination shows decreased active range of motion but full passive range of motion when compared to his right shoulder, 4/5 strength with supraspinatus testing, positive impingement signs, no instability Results Reviewed Results Reviewed: X-rays of the patient's left shoulder taken previously show moderate to severe acromioclavicular joint narrowing, a type 2 acromion, no acute bony abnormalities Assessment & Plan Assessment & Plan (1) Rotator cuff insufficiency of left shoulder: Code(s): M25.312 - Other instability, left shoulder Category: Medical Plan Mr. Mendez presents with progressively worsening left shoulder pain and weakness most likely due to a full-thickness rotator cuff tear. Thus, I will send the patient for an MRI of his left shoulder for further evaluation. I will see him back once the MRI is completed to discuss the findings and treatment options. Will continue with his activity modifications in the meantime. Feel free to call me at any time should questions regarding his orthopedic management arise. I spent 20 minutes in reviewing the patient's records and imaging studies, seeing the patient and documenting in the medical record. Orders: Orders MR shoulder LT wo con Today M25.312 - Other instability, left shoulder Coding Level of Care Code New Pt Level 3 (19923) Complex EM visit Add On G2211 Diagnoses Rotator cuff insufficiency of left shoulder M25.312
[2024-08-17 12:56] VITALS: BMI 29.6
--- OUTSIDE RECORDS SUMMARY | 2024-08-17 14:30 | XMS_ITS ---
[facility] Organization [facility] Address [address] [facility] [place] [address] Care Team Providers Care Log Handler Name Role Phone Ara MEZA, Ganga Primary Care Provider Carole Solorzano Unavailable [phone] Allergies No Known Allergies REASON FOR VISIT Painful nail(s) aggrevated by shoes causing difficulty standing/walking, Skin Problem Medications Medication SIG (Take, Route, Frequency, Duration) Notes Start Date End Date Status Amoxicillin 500 MG 1 capsule Orally francine ry 8 hrs for 10 day(s) Not-Taking Naprosyn 500 MG 1 tablet as needed Orally every 12 hrs Not-Taking Terbinafine HCl 250 MG 1 tablet Orally O nce a day for 90 days 08/01/2023 Active Tamsulosin HCl Not-T aking Ciclopirox Olamine 0.77 % 1 application Externally Twice a day for 30 days Not-Taki ng Naproxen 500 MG 1 tablet with food o r milk as needed Orally every 12 hrs Not-Taking Ciclopirox Olamine 0.77 % 1 application to affected area Externally Twice a day for 30 days 07/29/2018 Not-Taki ng Social History Tobacco Use: Social History Observation Description Date Details (start date - stop date) Former Smoker NA - NA Tobacco use other than smoking: Question Answer Notes Are you an other tobacco user? No Tobacco Control (Standard) Question Answer Notes Tobacco use: Former smoker Additional Findings: Tobacco non-user Ex-cigaret te smoker AUDIT-C (Standard) Question Answer Notes Did you have a drink contain ing alcohol in the past year? Yes How often did you have six o r more drinks on one occasion in the past year? Never (0 point) How many drinks did you have on a typical day when you were drinking in the past year? 1 or 2 drinks (0 point) How often did you have a dri nk containing alcohol in the past year? 2 to 4 times a month (2 points) Points 2 Interpretation Negative Vital Signs Height 5ft 9in in 06/02/2024 Weight 196 lbs 06/02/2024 BMI 28.94 kg/m2 06/02/2024 Blood pressure systolic 127 mm Hg 06/02/20 24 Blood pressure diastolic 84 mm Hg 024 Encounters Encounter [facility] Date [facility] [address] [facility]/02/2024 Carole Black Tinea unguium B35.1 and Tinea pedis of both feet B35.3 Assessments Encounter Date Diagnosis (ICD Code) Assessment Notes Treatment Notes Treatment Clinical Notes Section Notes 06/02/2024 Tinea unguium (ICD-10 - B35.1) 06/02/2024 Tinea pedis of both feet (ICD-10 - B35.3) Plan Of Treatment Next Appt Details Follow Up: prn, Reason: Progress Notes * Jaquan MENDEZB:[birth year] (54 yo M)Acc No.[id number]:06/02/2024 Progress Note Patient:?Jaquan MENDEZ Provider:?Carole Alegre DPM :1970???Age:54 Y???Sex:Male Giovanny e:06/02/2024 Address:[address] [place] [address], [facility] Pcp:Ganga Bullock MD Subjective: * Chief Complaints: * ???Painful nail(s) aggrevate d by shoes causing difficulty standing/walkingSkin Problem * HPI: ???Painful Nails:?Pt States Last PCP Visit:?Date:?04/09/2024 ?Course:?improved.?Treatments:?, Oral Antifungal, Pulse Dose PO Antifungal Treatment, denies any adverse side effects to medication, (i.e. rash, hives, taste/GI disturbance, yellow skin/eye discoloration, discolored stools, or any other unusual bodily complaints).?Skin problems:?Location:?B/L .?Duration:?, several months.?Course:?, improved, at 100%.?Treatments:?oral and topical antifungal.? * ROS:?General/Constitutional:?Nausea?denies.?Vomiting?denies.?Hunger Thirst?denies.?Loss appetite?denies.?Chills?denies.?Fatigue?denies.?Fever?denies.?Night Sweats?denies.?Unexplained weight loss?denies.?Unexplained weight gain?denies.?HEENTM:?Dentures?denies.?Dizziness?denies.?Glasses/contacts?admits.?Retinopathy?de nies.?Blurred/double vision?denies.?TMJ?denies.?Discharge/drainage?denies.?Implants?denies.?Sore throat?denies.?Dental implants?denies.?Hard of hearing ?denies.?Difficulty chewing/swallowing/speaking?denies.?Nose bleeds?admits.?Sore mouth?denies.?Respiratory:?On Oxygen?denies.?Pneumonia/pleurisy?denies.?Bronchitis?denies.?Emphysema?denies.?C oughing?denies.?Cough blood?denies.?Shortness of breath?denies.?Wheezing?denies.?Cardiovascular:?Pacemaker?denies.?MVP?denies.?WPW?denies.?CHF?denies.?Heart attack?denies.?Septal defect?denies.?Rapid beat?denies.?Chest pain ?denies.?Atrial Fib.?denies.?Murmur/Palpitations?denies.?Gastrointestinal:?Hemorrhoids?denies.?Stomach/Abdominal pain?denies.?Dark blood stool?denies.?Irritable bowel ?denies.?Constipation?denies.?Diarrhea?denies.?Hematology:?Swelling?denies.?Clots?denies.?Varicose Veins?denies.?Bruising?denies.?Bleeding problem?denies.?Genitourinary:?Blood urine?denies.?Frequent/Painfu/urination/bladder control?denies.?Kidney stones?admits.?Infection (UTI)?denies.?Nephropathy?denies.?sex trans dis (STD)?denies.?Prostate?admits.?Musculoskeletal:?Hammertoes?denies.?Bunions?denies.?Back Pain?denies.?Muscle Cramps/ Resting?denies.?Muscle cramps / walking?denies.?Generalized aches and pains?admits.?Weakness?denies.?Integ.:?Bloom?denies.?Scars?denies.?Corns/calluses?denies.?Ingrown nails?denies.?Painful nails?denies.?Open Sores?denies.?Rashes?denies.?Neurologic:?Difficulty sleeping?denies.?Brain disorder?denies.?Numbness?denies.?Balance trouble?denies.?Confusion?denies.?Fainting/blackouts?denies.?Tingling?denies.?Tr emors?denies.? * Medical History:? * Surgical History:?vasectomy inguinal hernia repair, right right knee 2010 * Hospitalization/Major Diagno stic Procedure:?Denies Past Hospitalization * Family History:?Mother: dece ased, colon cancer.?Father: .? * Social History:?Tobacco Use:?Tobacco use other than smoking?Are you an other tobacco user??No ?Tobacco Control (Standard)?Tobacco use:?Former smoker ?Additional Findings: Tobacco non-user?Ex-cigarette smoker ???Drugs/Alcohol:?Drugs?Have you used drugs other than those for medical reasons in the past 12 months??No ???Miscellaneous:?Caffeine: yes, frequency: coffee. ?Children: yes. ?Exercise: yes, in the . ?Marital status: . ?Occupation: [employer]. ???Drug/Alcohol:?AUDIT-C (Standard)?Did you have a drink containing alcohol in the past year??Yes ?How often did you have six or more drinks on one occasion in the past year??Never (0 point) ?How many drinks did you have on a typical day when you were drinking in the past year??1 or 2 drinks (0 point) ?How often did you have a drink containing alcohol in the past year??2 to 4 times a month (2 points) ?Points?2 ?Interpretation?Negative * Medications:?TakingTerbinafi ne HCl 250 MG Tablet 1 tablet Orally Once a day Taking Terbinafine HCl 250 MG Tablet 1 tablet Orally Once a day Not- Taking/PRNTamsulosin HCl Ciclopirox Olamine 0.77 % Cream 1 application Externally Twice a day Ciclopirox Olamine 0.77 % Cream 1 application to affected area Externally Twice a day Naproxen 500 MG Tablet 1 tablet with food or milk as needed Orally every 12 hrs Amoxicillin 500 MG Capsule 1 capsule Orally every 8 hrs Naprosyn 500 MG Tablet 1 tablet as needed Orally every 12 hrs Medication List reviewed and reconciled with the patientNot-Taking/PRN Tamsulosin HCl Not-Taking/PRN Ciclopirox Olamine 0.77 % Cream 1 application Externally Twice a day Not-Taking/PRN Ciclopirox Olamine 0.77 % Cream 1 application to affected area Externally Twice a day Not-Taking/PRN Naproxen 500 MG Tablet 1 tablet with food or milk as needed Orally every 12 hrs Not-Taking/PRN Amoxicillin 500 MG Capsule 1 capsule Orally every 8 hrs Not-Taking/PRN Naprosyn 500 MG Tablet 1 tablet as needed Orally every 12 hrs Medication List reviewed and reconciled with the patient * Allergies:?N.K.D.A.yes[Aller gies Verified] Objective: * Vitals:?Ht: 5ft 9in, Wt:196, BMI:28.94, Shoe size: 8.5, BP:127/84mm Hg, Ht-cm: 175.26 cm, Wt-k.9 kg. * Examination: ???General Examination: ?GENERAL APPEARANCE:?Reveals a pleasant, alert, well nourished, well- developed, well hydrated individual, who demonstrates proper attention to hygiene/body habitus, and is in no acute distress, Pt serves as own historian for office visit today.?ORIENTED:?person, place, and time.?Dermatologic: ?SKIN FINDINGS:? Skin shows sign(s) of, no erythema, scaling, in a moccasin fashion, no fissure(s) present, B/L,approximately 100? percent LESS.?Neurological: ?SENSORY:?Neurological exam reveals intact sensorium, pain sensation normal, vibration sensation intact, pinprick sensation is normal in the lower extremities, Pt denies, anesthesia, burning, paresthesia, tingling, B/L.?TINEL'S COMPRESSION:? Negative, Saphenous nerve distribution, Right.?Nails: ?NAILS are:?Elongated, overgrown, nondystrophic no evidence of any remaining fungus.?Vascular: ?DP PULSES (B):?3/4, B/L.?PT PULSES (B):?3/4, B/L.?CAPILLARY FILL TIME:?immediate, all digits, B/L.?TEMPERTURE GRADIENT (C):?normal, warm to cool, proximal to distal, B/L, B/L.? Assessment: * Assessment: 1.?Tinea unguium - B35.1 (Pr imary)???Specify :Response to treatment - Resolved???2.?Tinea pedis of both feet - B35.3???Specify :Response to treatment - Resolved??? Plan: * Treatment: * Procedure Codes:? * Preventive Medicine:? ??Counseling:?Discussion:?-13: Office or other outpatient visit for the evaluation and management of an established patient, which required a medically appropriate history and/or examination and LOW level of DECISION MAKING for: 1 STABLE ACUTE UNCOMPLICATED PROBLEM, 2 OR MORE MINOR PROBLEMS, OR 1 STABLE CHRONIC PROBLEM, THAT POSE(S) A LOW RISK FOR MORBIDITY/MORTALITY. The visit on the day of the encounter encompassed interpreting the data and educating the patient as to the nature of their condition, treatment options available according to their individual PMH, meds, allergies, and overall health/living conditions, as well as any potential risks or complications that may occur from a failure to adhere to, and participate in, the recommended course of therapy. The discussion included a complete verbal, and/or written explanation of the examination results, any x-rays taken, the proposed diagnosis, and outline of the treatment plan. A schedule for future care needs was also explained. The patient verbalized an understanding of the instructions at this time and agreed to be an active participant in their treatment. If the patient should think of any questions or concerns after the visit, I have encouraged the patient to call the office.?F/U Fungal nails:?PREVENTIVE STRATEGIES were reviewed with the patient to avoid recurrent issues .,.?Tinea Pedis:?PREVENTIVE STRATEGIES were reviewed with the patient to avoid recurrent issues ., Recomm Clean Sweep for shoegear.? * Follow Up:?prn * Images: * Sign off status: Completed true * Provider:?Carole Alegre DPM Date:?2023 Generated for Ruchi bolton/Abdiel/eTransmitting on:?08/17/2024 02:30 PM EST History and Physical Notes * HPI (History of Present Illness) Category Sub-Category Detail Notes Category Not es Painful Nails Course: improved Treatments: , Oral Antifungal, P ulse Dose PO Antifungal Treatment, denies any adverse side effects to medication, (i.e. rash, hives, taste/GI disturbance, yellow skin/eye discoloration, discolored stools, or any other unusual bodily complaints) Pt States Last PCP Visit: Date:: 04/09/2024 Skin problems Location: B/L Duration: , several months Course: , improved, at 100% Treatments: oral and topical ant ifungal Examination Category Sub-Category Detail Notes Category Not es Neurological SENSORY: Neurological exa m reveals intact sensorium, pain sensation normal, vibration sensation intact, pinprick sensation is normal in the lower extremities, Pt denies, anesthesia, burning, paresthesia, tingling, B/L TINEL'S COMPRESSION: Negative, Saphenous nerve distribution, Right Dermatologic SKIN FINDINGS: Skin shows sign( s) of, no erythema, scaling, in a moccasin fashion, no fissure(s) present, B/L,approximately 100 percent LESS General Examination GENERAL APPEARANCE: Reveals a pleasant, alert, well nourished, well-developed, well hydrated individual, who demonstrates proper attention to hygiene/body habitus, and is in no acute distress, Pt serves as own historian for office visit today ORIENTED: person, place, and t concepcion Vascular DP PULSES (B): 3/4, B/L PT PULSES (B): 3/4, B/L CAPILLARY FILL TIME: immediate, all digi ts, B/L TEMPERTURE GRADIENT (C): normal, warm to cool, proximal to distal, B/L, B/L Nails NAILS are: Elongated, overg rown, nondystrophic no evidence of any remaining fungus
--- OUTSIDE RECORDS SUMMARY | 2024-08-17 14:30 | XMS_ITS ---
Author Organization [facility] Address [address] [place] [address] Care Team Providers Care Barrel Burner Name Role Phone Ganga Bullock MD Primary Care Provider Carole Solorzano [phone] REASON FOR VISIT Labs Medications Medication SIG (Take, Route, Fr equency, Duration) Notes Start Date End Date Status Terbinafine HCl 250 MG 1 tablet Orally O nce a day for 90 days 08/01/2023 Active Encounters Encounter Location Date Provider Diagnosis [facility] [address] [place] [address] 08/01/2023 Carole Alegre Plan Of Treatment Medication Medication Name Sig Start Date Stop Date Notes Terbinafine HCl 250 MG 1 tablet Orally O nce a day for 90 days 08/01/2023 Progress Notes * Jaquan MENDEZDOB:[birth year] (53 yo M)Acc No.[id number]:08/01/2023 Patient:?Jaquan Mendez :1970???Age:53 Y???Sex:Male Address:[address] [place] [address], [address] * Refills? Start Terbinafine HCl Tablet, 250 MG, Orally, 90 Tablet, 1 tablet, Once a day, 90 days, Refills=0 * true * Date:? Generated for Ruchi bolton/Abdiel/eTransmitting on:?08/17/2024 02:30 PM EST
--- OUTSIDE RECORDS SUMMARY | 2024-08-17 14:30 | XMS_ITS ---
Author Organization [facility] Address [address] [place] [address] Care Team Providers Care Meter/Relay Technician Name Role Phone Ara MEZA, Ganga Primary Care Provider Jonathon Alegre, Carole Unavailable [phone] REASON FOR VISIT Lab results Encounters Encounter Location Date Provider Diagnosis [facility] [address] [place] [address] 08/01/2023 Carole Alegre Plan Of Treatment No Information Progress Notes * Jaquan MENDEZDOB:[birth year] (53 yo M)Acc No.[id number]:08/01/2023 Patient:?Jaquan Mendez :1970???Age:53 Y???Sex:Male Address:[address] [facility], [place], [address] * true * Date:? Generated for Printi che/Abdiel/eTransmitting on:?08/17/2024 02:30 PM EST
--- OUTSIDE RECORDS SUMMARY | 2024-08-17 14:31 | XMS_ITS | Patient Health Record ---
[facility] Address [address] [facility] [place] [address] Care Team Providers Care Laboratory Inspector Name Role Phone Ganga Bullock MD Primary Care Provider Carole Solorzano Unavailable [phone] Allergies No Known Allergies Reason For Referral No Information Medications Medication SIG (Take, Route, Frequency, Duration) Notes Start Date End Date Status Naproxen 500 MG 1 tablet with food o r milk as needed Orally every 12 hrs Not-Taking Amoxicillin 500 MG 1 capsule Orally francine ry 8 hrs for 10 day(s) Not-Taking Naprosyn 500 MG 1 tablet as needed Orally every 12 hrs Not-Taking Terbinafine HCl 250 MG 1 tablet Orally O nce a day for 90 days 08/01/2023 Active Tamsulosin HCl Not-T aking Ciclopirox Olamine 0.77 % 1 application Externally Twice a day for 30 days Not-Taki ng Ciclopirox Olamine 0.77 % 1 application to [...] month (2 points) Points 2 Interpretation Negative Problems Problem Type SNOMED Code ICD Code Onset Dates Problem Status W/U Status Risk Notes Problem Acquired hallux valgus (94310709) Hallux valgus (acquired), right foot (M20.11) Active confirmed Problem [id number] Acquired hallux interphalangeus of right foot (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) Active confirmed Vital Signs Blood pressure diastolic 84 mm Hg 06/02/2024 Height 5ft 9in in 06/02/2024 Blood pressure systolic 127 mm Hg 06/02/2024 Weight 196 lbs 06/02/2024 BMI 28.94 kg/m2 06/02/2024 Encounters Encounter Location Date Provider Diagnosis [facility] [address] 06/02/2024 Carole Black Tinea unguium B35.1 and Tinea pedis of both feet B35.3 Assessments Encounter Date Diagnosis (ICD Code) Assessment Notes Treatment Notes Treatment Clinical Notes Section Notes 06/02/2024 Tinea unguium (ICD-10 - B35.1) 06/02/2024 Tinea pedis of both feet (ICD-10 - B35.3) Plan Of Treatment Pending Test Test Name Order Date *Liver Function Test (LFT) 07/19/2023 X ray : Foot, right 3V 03/27/2013 Insurance Providers Payer Name Payer Address Payer Phone Subscriber Number Group Number Insured Name Patient Relationship to Insured Coverage Start Date Coverage End Date [facility] [address] [place] [address] [id number] Jaquan Mendez Self - patient is the insured Medical (General) History Medical History History ICD Code Arthritis anxiety iluem reactive lymphoid follicles Chicken pox Surgical History Surgery Date(Month/Year) vasectomy inguinal hernia repair, right right knee 2009
== END 2024-08-17 13:28 | disposition home or self-care (01) ==
PROVIDERS: PCP Family Medicine; Visit Provider Orthopaedic Surgery
DX: M25.312 Other instability, left shoulder (principal)
CPT/HCPCS: 99203

== ENCOUNTER → 2024-08-30 19:21 | Outpatient (BNV) | payer BC, SELFPAY | PROVIDERS: PCP Family Medicine; Visit Provider Radiology Diagnostic Radiology | DX: M75.112 Incomplete rotator cuff tear or rupture of left shoulder, not specified as traumatic (principal); M19.012 Primary osteoarthritis, left shoulder | CPT/HCPCS: 73221 ==

== ENCOUNTER 2024-08-30 19:27 | Outpatient (REF) | payer BC, SELFPAY ==
--- NOTE | ~2024-08-30 | MR_ITS ---
CLINICAL HISTORY: M25.312 - Other instability, left shoulder MR left shoulder without gadolinium Comparison: CR - XR SHOULDER LT MIN 2V - 07/14/24 14:17 EST Findings: No acute fracture or pathologic bone lesion. Mild glenohumeral and moderate acromioclavicular joint osteoarthritis. Type II acromion. No joint effusion. Mild T2 signal elevation diffusely throughout the supraspinatus and infraspinatus tendons at the humeral insertion site extending to the musculotendinous junction. Superimposed moderate grade bursal surface and intrasubstance tearing of the anterior supraspinatus tendon at the humeral insertion site. Superimposed moderate grade intrasubstance tearing of the mid supraspinatus tendon at the humeral insertion site. Low-grade articular surface tearing of the posterior supraspinatus and anterior infraspinatus tendons at the humeral insertion site. Subscapularis and teres minor tendons are intact. No rotator cuff atrophy. No tears of the long head of biceps tendon. There is undercutting of the posterior labrum. IMPRESSION: 1. Partial-thickness tearing of the supraspinatus and infraspinatus tendons. No full-thickness rotator cuff tear. 2. Acromioclavicular and glenohumeral joint osteoarthritis. 3. Posterior labral tearing. This document has been electronically signed by: Ky Ibarra MD on 08/31/2024 15:35:40
== END 2024-08-30 19:28 | disposition home or self-care (01) ==
LOC: HO.MRI 19:27
PROVIDERS: PCP Family Medicine; Visit Provider Orthopaedic Surgery
DX: M25.312 Other instability, left shoulder (principal); M19.012 Primary osteoarthritis, left shoulder
CPT/HCPCS: 73221

== ENCOUNTER 2024-10-08 11:24 | Outpatient (AMB) | payer BC, SELFPAY ==
[2024-10-08 11:28] VITALS: BMI 29.5
--- NOTE | 2024-10-08 11:28 | MHC.OFFVIS ---
Vital Signs 10/08/24 11:28 Height 5 ft 9 in Weight 200 lb BMI 29.5 Intake Visit Reasons: OV-MRI Shoulder LT-Review Intake Note: Jaquan is a 54 year old left hand dominant male who presents with complaints of progressively worsening left shoulder pain and weakness. 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 He was lifting a 70 lb object when he had acute onset of pain. Since that time he has done formal physical therapy which gave him minimal relief. He reports weakness when lifting his left hand above shoulder height. He has tried Tylenol and anti-inflammatory medicines which gave him minimal relief. Allergies No Known Allergies Allergy (Verified 08/17/24 12:57) Medication List - Last Reconciled 10/08/24 by Shantanu Oliver MD atorvastatin 20 mg PO DAILY 90 days tadalafil (Cialis) 5 mg PO DAILY tamsulosin (Flomax) 0.4 mg PO BEDTIME 30 days [facility] Medical History Erectile dysfunction due to arterial insufficiency Weak urinary stream Surgical History Hx of cystoscopy History of surgery Family History Mother Colon cancer Sister Cervical ca Social History Housing: House Alcohol intake: current Patient Tobacco Use Status: Former Tobacco user Tobacco use type: Cigarette Cigarettes Per Day: 20 Years Smoked: 30 e-Cigarette/Vaping Use: Never Used Second Hand Smoke Exposure: No service: Yes Current occupational status: employed Current occupation: left handed, [employer] Current occupational exposures/hazards: No Cognitive needs: No Hearing needs: No Vision needs: No Physical Exam Vital Signs: BMI result Body Mass Index 29.5 Const Other: Well-nourished well-developed very friendly male awake alert and oriented x3 in no acute distress Extrem Other: Left shoulder examination shows slightly decreased range of motion when compared to his right shoulder, 4/5 strength with supraspinatus testing, positive impingement signs, tenderness over his acromioclavicular joint, no instability Results Reviewed Results Reviewed: MRI of the patient's left shoulder show severe acromioclavicular joint narrowing, a type 2 acromion, a full-thickness tear of the supraspinatus tendon Assessment & Plan Assessment & Plan (1) Rotator cuff insufficiency of left shoulder: Code(s): M25.312 - Other instability, left shoulder Category: Medical Plan Mr. Mendez presents with left shoulder pain and weakness due to impingement syndrome, acromioclavicular joint arthritis and a full-thickness rotator cuff tear. I had a lengthy discussion with the patient regarding the treatment options. At this point he appears to be failing continued non operative treatments. The risks and benefits of left shoulder surgery were discussed at length with the patient. The patient is considering undergoing surgery later this year. He will contact my office to pick a surgery date when he chooses to do so. Surgery will involve left shoulder distal clavicle excision, acromioplasty and rotator cuff repair. He will continue with his range of motion exercises in the meantime. Feel free to call me at any time should questions regarding his orthopedic management arise. I spent 21 minutes in reviewing the patient's records and imaging studies, seeing the patient and documenting in the medical record. Coding Level of Care Code Est Pt Level 3 (14488) Complex EM visit Add On G2211 Diagnoses Rotator cuff insufficiency of left shoulder M25.312
--- OUTSIDE RECORDS SUMMARY | 2024-10-08 14:15 | XMS_ITS ---
Author Organization [facility] Address [address] [place] [address] Care Team Providers Care Nursing Unit Coordinator Name Role Phone Ganga Bullock MD Primary Care Provider Carole Solorzano [phone] REASON FOR VISIT Labs Medications Medication SIG (Take, Route, Fr equency, Duration) Notes Start Date End Date Status Terbinafine HCl 250 MG 1 tablet Orally O nce a day for 90 days 08/01/2023 Active Encounters Encounter Location Date Provider Diagnosis [facility] [address] [place] [address] 08/01/2023 Carole Alegre Plan Of Treatment Medication Medication Name Sig Start Date Stop Date Notes Terbinafine HCl 250 MG 1 tablet Orally O nce a day for 90 days 08/01/2023 Progress Notes * Jaquan MENDEZDOB:[birth year] (53 yo M)Acc No.[id number]:08/01/2023 Patient:?Jaquan Mendez :1970???Age:53 Y???Sex:Male Address:[address] [place] [address], [address] * Refills? Start Terbinafine HCl Tablet, 250 MG, Orally, 90 Tablet, 1 tablet, Once a day, 90 days, Refills=0 * true * Date:? Generated for Ruchi bolton/Abdiel/eTransmitting on:?10/08/2024 02:15 PM EDT
--- OUTSIDE RECORDS SUMMARY | 2024-10-08 14:15 | XMS_ITS | Continuity of Care Document ---
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 time, plans to follow up at home station as needed. ----- Provider's Name: Jessie Sykes [facility], [facility] Date: ----- 1. Address concerns identified on deployer questions 1 and 2. Self health rating: N/A Deployer's response: N/A Provider's comments: Change in health post-deployment: Deployer indicated concern or yes Deployer's response: Provider's comments: was only seen for insomnia and left shoulder pain in [place] 2. Address wounds, injuries, assaults, etc., occurring during deployment as reported on deployer question 4. Deployer did not indicate concern. 3. Deployment experiences as reported in deployer question 5. Consider in overall assessment; as follow-up questions as indicated. Danger of being killed: N/A Provider's comments: Encountered bodies or saw people killed or wounded: N/A Provider's comments: In direct combat and discharged weapon: N/A Provider's comments: 4. Address concerns identified on deployer questions 6 through 9. Health care visits during deployment: N/A Deployer's response: N/A Provider's comments: Care for combat stress/mental health: N/A Deployer's response: N/A Provider's comments: Hospitalized since return: N/A Deployer's response: N/A Provider's comments: Physical limitations/problems: Deployer indicated concern or yes Deployer's response: Provider's comments: shoulder pain, headache, sleep trouble, and ringing in ears. 5. a. Deployer had an injury based on responses to question 10.a. b. Deployer did NOT have a possible concussion based on responses to questions 10.a. through 10.c. 6. Post-deployment general symptoms/health concerns. List of symptoms reported as Bothered a Lot on Deployer Questions 11a. through 11ee.: Back pain, Pain in the arms, legs, or joints (knees, hips, etc.), Headaches, Shortness of breath, Constipation, loose bowels, or diarrhea, Trouble Sleeping, Noises in your head or ears (such as ringing, buzzing, crickets, humming, tone, etc.) List of symptoms reported as Bothered a Little on Deployer Questions 11a. through 11ee.: Stomach pain, Chest pain, Feeling your heart pound or race, Nausea, gas, or indigestion, Feeling tired or having low energy, Becoming easily annoyed or irritable, Cough lasting more than 3 weeks, Numbness or tingling in the hands or feet, Pain with urination, frequency of urination, or strong urge to urinate Physical symptom (PHQ-15) severity score for Deployer Questions 11a. through 11o.: High a. Deployer has evidence of high generalized post-deployment physical symptoms. --Referral is not indicated because there is no significant impairment. 7. Deployer marked that they have a concern or a difficulty with a major life stressor: sleep. Referral is not indicated because there is no significant impairment. 8. Address concerns as described on deployer questions 13 and 14. History of mental health care: N/A Deployer's response: Provider's comments: Medications: Deployer indicated concern or yes Deployer's response: melatonin, unisom melatonin, unisom Provider's comments: takes as needed for sleep 9. Deployer's AUDIT-C screening score was 2. (nothing required) 10. Deployer did not rogerio yes on two or more of questions 16a through 16e. 11. Deployer did not rogerio More than half the days or nearly every day on question 17a or 17b. 12. Deployer indicated a worry or concern about a possible environmental/work exposure. a. Deployer's exposure concerns: Smoke from burrning trash or feces Referral is not indicated because there is no significant impairment. 13. Deployer marked NO to the question about possible exposure to depleted uranium. 14. Deployment location did not require malaria prophylaxis. 15. Deployer indicated they were NOT bitten or scratched during this deployment. 16.a. Deployer has not wished they were or wished they could go to sleep and not wake up. 16.b. Deployer has not actually had thoughts of killing themself. 16.f.1. Deployer has not ever done anything, started to do anything, or prepared to do anything to end their life. 16.g. Further risk assessment: 16.h. Deployer does not pose a current risk for harm to self. 17. Deployer states that they have not had thoughts or concerns over the past month that they might hurt or lose control with someone. 23. Supplemental services recommended/information provided: No Supplemental Services Required ----- 1. Fair : Overall how would you rate your health during the PAST MONTH? 2. Much worse now than before I deployed : Compared to before this deployment, how would you rate your health in general now? harder to breathe, shoulder pain, headaches, joint pain, insomnia, stomach problems 3. Not at all : How often did you smoke tobacco (For example cigarettes, cigars, pipe, Or hookah) during your deployment? 4. No : Were you wounded, injured, assaulted or otherwise hurt during your deployment? 5. During your deployment: 5.a. No : Did you ever feel like you were in great danger of being killed? 5.b. No : Did you encounter bodies or see people killed or wounded during this deployment? 5.c. No : Did you engage in direct combat where you discharged a weapon? 6. 1 visit : How many times during your deployment did you visit a health care provider for a medical or dental health problem/concern? 7. No : During this deployment did you receive care for combat stress or a mental health problem/concern? 8. No : During this deployment did you have to spend one or more nights in a hosptial as as patient? 9. Somewhat difficult : During the PAST MONTH, how difficult have physical health problems (illness or injury) made it for you to do your work or other regular daily activities? 10.a. During this deployment, did any of the following events happen to you? (Rogerio all that apply) No : (1) Blast or explosion (e.g. IED, RPG, EFP, land mine, grenade, etc.)? No : (2) Vehicular accident/crash (any vehicle including aircraft)? (3) Fragment wound or bullet wound? No : a. Head or neck? No : b. Rest of body? Yes : (4) Other injury (e.g., sports injury, accidental fall, etc.)? shoulder pain : If yes to any of the above, please explain 10.b. As a result of any of the events in 10.a., did you receive a jolt or blow to your head that IMMEDIATELY resulted in: No : (1) Losing consciousness? (knocked out) No : (2) Losing memory of events before or after the injury? No : (3) Seeing stars, becoming disoriented, functioning differently, or nearly blacking out? 10.c. 0 : How many total times during this deployment did you receive a blow or jolt to your head? 11. During the PAST MONTH, how much have you been bothered by any of the following problems? (See health care provider item #6 above) 12.a. sleep. : Over the PAST MONTH, what major life stressors, if any, have you experienced that are a cause of significant concern or make it difficult for you to do your work, take care of things at home, or get along with other people? 12.b. No : Are you currently in treatment or getting professional help for this concern? 13. No : In the PAST YEAR, did you receive care for any mental health condition or concern such as, but not limited to post traumatic stress disorder (PTSD), depression, anxiety disorder, alcohol abuse or substance abuse? 14. Yes melatonin, unisom : What prescription or over-the counter medications (including herbals/supplements) for sleep, pain, combat stress, or a mental health problem are you CURRENTLY taking? 15.a. 2-4 times a month : How often do you have a drink containing alcohol? 15.b. 1 or 2 : How many drinks containing alcohol do you have on a typical day when you are drinking? 15.c. Never : How often do you have six or more drinks on one occasion? 16. Have you ever had any experience that was so frightening, horrible, or upsetting that in the PAST MONTH, you: 16.a. No : Have had nightmares about it or thought about it when you did not want to? 16.b. No : Tried hard not to think about it or went out of your way to avoid situations that remind you of it? 16.c. No : Were constantly on guard, watchful or easily startled? 16.d. No : [place] numb or detached from others, activities, or your surroundings 16.e. No : [place] guilt or unable to stop blaming yourself or others for the event(s) or any problems the event(s) may have caused? 17. Over the LAST 2 WEEKS, how often have you been bothered by the following problems? 17.a. Not at all : Little interest or pleasure in doing things 17.b. Few or several days : Feeling down, depressed, or hopeless 18. Yes : Are you worried about your health because you believe you were exposed to something in the environment while deployed? --air born hazards 19.a. Not Sure : During this deployment were you based or stationed at a location where an open burn pit was used? 19.b. Yes : During this deployment were you exposed to toxic airborne chemicals or other air-borne contaminants? 19.c. No : For Service members, are you enrolled in the Airborne Hazards and Open Burn Pit Registry? 19.d. Wish to Enroll : For Service members, federal law requires eligible members to enroll in the Airborne Hazards and Open Burn Pit Registry or opt-out. If eligible, choose one: 20. No : Do you think you were exposed to any chemical, biological, or radiological warfare agents during this deployment? 21. No : Were you in a vehicle hit by a depleted uranium (DU) round; inside a destroyed vehicle that contained DU; or closely inspect such a vehicle? 22. No : Were you told to take medicines to prevent malaria? 23. No : Were you bitten or scratched by an animal during your deployment? 24. Yes : Would you like to schedule an appointment with a health care provider to discuss any health concern(s)? 25. No : Are you interested in receiving information or assistance for a stress, emotional or alcohol concern? 26. No : Are you interested in receiving assistance for a family or relationship concern? 27. No : Would you like to schedule a visit with a lap welder, mental health care provider, or a community support counselor? Extracted from:Title: DHA1 Author: JUNAID NEWELL Date: 07/04/23 PRE-DEPLOYMENT HEALTH ASSESSMENT ([id number] MAR 2015) Last Name: ADI First Name: JAQUAN [email or web address] Number: [id number] Date of : Sex: Male Service Branch: [employer] Component: [employer] Pay Grade: E7 ----- Estimated date of upcoming deployment: Country: [place] Number of previous deployments: 1 ----- Medical assessment/disposition: Deployable Medical assessment/disposition comments: ----- Summary of provider's identified concerns needing referral: None identified ----- Provider's Name: LIBERTY CABALLERO Date: ----- 1. Address concerns identified on deployer questions 1 through 8. Self health rating: N/A Deployer's response: N/A Provider's comments: MEB or PEB: Deployer's response: N/A Provider's comments: Medical, dental or mental health concern: N/A Deployer's response: N/A Provider's comments: Head Injury: N/A Deployer's response: N/A Provider's comments: Medications: N/A Deployer's response: N/A Provider's comments: History of mental health care: N/A Deployer's response: N/A Provider's comments: 2. Member marked that they were bothered a little or a lot by noises in head or ears or trouble hearing. Referral is not indicated because there is no significant impairment. 3. Deployer's AUDIT-C screening score was 1. (nothing required) 4. Deployer did not rogerio yes on two or more of questions 11a through 11d. 5. Deployer did not rogerio More than half the days or nearly every day on question 12a or 12b. 6. Deployer marked that they did not have a concern or a difficulty with a major life stressor. 7. Deployer has not been bothered by thoughts that they would be better off or of hurting themself in some way. 8. Deployer states that they have not had thoughts or concerns over the past month that they might hurt or lose control with someone. 9. Medical history review completed. a. Significant findings related to ability to deploy: b. There is no evidence of deployment limiting conditions or medications. 16. Supplemental services recommended/information provided: ----- 1. Overall how would you rate your health during the PAST MONTH? : Very Good 2. Are you CURRENTLY on a profile, limited duty, waiting on a MOS/Medical Retention Board (MMRB) decision, or being referred to a medical evaluation board (MEB) or physical evaluation board (PEB)? : No 3. How often do you smoke tobacco (for example cigarettes, cigars, pipe or hookah)? : Not at all 4. What problems, questions or concerns do you have about your medical, dental, or mental health? : No 6. In the PAST YEAR did you receive care for a head injury? : No 7. What prescription or over-the counter medications (including herbals/supplements) for sleep, pain, combat stress, or mental health conditions or concerns are you CURRENTLY taking? : None 8. During the PAST MONTH, how much have you been bothered by any of the following problems? : No 9. During the PAST MONTH, how much have you been bothered by any of the following problems? 9. a. Noises in your head or ears (such as ringing, buzzing, crickets, humming, tone, etc.) Bothered a little 9. b. Trouble hearing Not bothered at all 10. a. How often do you have a drink containing alcohol? Monthly 10. b. How many drinks containing alcohol do you have on a typical day when you are drinking? 1 or 2 10. c. How often do you have six or more drinks on one occasion? Never 11. Have you ever had any experience that was so frightening, horrible, or upsetting that in the PAST MONTH, you: 11. a. Have had nightmares about it or thought about it when you did not want to? No 11. b. Tried hard not to think about it or went out of your way to avoid situations that remind you of it? No 11. c. Were constantly on guard, watchful or easily startled? No 11. d. [place] numb or detached from others, activities, or your surroundings No 12. Over the LAST 2 WEEKS, how often have you been bothered by the following problems? 12. a. Little interest or pleasure in doing things Not at all 12. b. Feeling down, depressed, or hopeless Not at all 13. a. Over the PAST MONTH, what major life stressors have you experienced that are a cause of significant concern or make it difficult for you to do your work, take care of things at home, or get along with other people (for example, serious conflicts with others, relationship problems, or a legal, disciplinary or financial problem)? : None 10/08/2024 [id number] AMDS Functional Status Combined list of recent functional and cognitive assessments recorded at [employer] (VA).VA Functional Harlan Measurement (FIM) Scale: 1 = Total Assistance (Subject = 0% +), 2 = Maximal Assistance (Subject = 25% +), 3 = Moderate Assistance (Subject = 50% +), 4 = Minimal Assistance (Subject = 75% +), 5 = Supervision, 6 = Modified Harlan (Device), 7 = Complete Harlan (Timely, Safely). Assessment Date/Time Source Assessment Type Assessment Skill Assessment Score Assessment Details No data available for this section
--- OUTSIDE RECORDS SUMMARY | 2024-10-08 14:15 | XMS_ITS ---
Author Organization [facility] Address [address] [place] [address] Care Team Providers Care Strapping Machine Operator Name Role Phone Ara MEZA, Ganga Primary Care Provider Carole Solorzano Unavailable [phone] Allergies No Known Allergies REASON FOR VISIT [...] 024 Encounters Encounter [facility] Date [facility] [address] 06/02/2024 Carole Black Tinea unguium B35.1 and Tinea pedis of both feet B35.3 Assessments Encounter Date Diagnosis (ICD Code) Assessment Notes Treatment Notes Treatment Clinical Notes Section Notes 06/02/2024 Tinea unguium (ICD-10 - B35.1) 06/02/2024 Tinea pedis of both feet (ICD-10 - B35.3) Plan Of Treatment Next Appt Details Follow Up: prn, Reason: Progress Notes * Jaquan MENDEZB:[birth year] (54 yo M)Acc No.[id number]:06/02/2024 Progress Note Patient:?Jaquan MENDEZ Provider:?Carole Alegre DPM :1970???Age:54 Y???Sex:Male Giovanny e:06/02/2024 Address:[address] [place] [address], [facility] Pcp:Ganga Bullock MD Subjective: * Chief Complaints: [...] in the . ?Marital status: . ?Occupation: [employer]. ???Drug/Alcohol:?AUDIT-C (Standard)?Did you have a drink containing [...] Alegre DPM Date:?2023 Generated for Ruchi bolton/Abdiel/eTransmitting on:?10/08/2024 02:15 PM EDT History and Physical Notes * HPI (History [...]
--- OUTSIDE RECORDS SUMMARY | 2024-10-08 14:16 | XMS_ITS | Patient Health Record ---
[facility] Organization [facility] Address [address] [place] [address] Care Team Providers Care Buffet Runner Name Role Phone Ganga Bullock MD Primary Care Provider Carole Solorzano Unavailable [phone] Allergies No Known Allergies Reason For Referral [...] Status Risk Notes Problem Acquired hallux valgus (33970320) Hallux valgus (acquired), right foot (M20.11) Active confirmed Problem [id number] Acquired hallux interphalangeus of right foot (M20.11) Active confirmed Vital Signs Blood pressure diastolic 84 mm Hg 06/02/2024 Height 5ft 9in in 06/02/2024 Blood pressure systolic 127 mm Hg 06/02/2024 Weight 196 lbs 06/02/2024 BMI 28.94 kg/m2 06/02/2024 Encounters Encounter Location Date Provider Diagnosis [facility] [address] 06/02/2024 Carole Black Tinea unguium B35.1 and [...] Insured Coverage Start Date Coverage End Date [facility] [address] [place] [address] [id number] Jaquan Mendez Self - patient is the insured Medical (General) History Medical History History ICD Code Arthritis anxiety iluem reactive lymphoid follicles Chicken pox Surgical History Surgery Date(Month/Year) vasectomy inguinal hernia repair, right right knee 2009
== END 2024-10-08 11:42 | disposition home or self-care (01) ==
LOC: HO.HOS 11:25
PROVIDERS: PCP Family Medicine; Visit Provider Orthopaedic Surgery
DX: M25.312 Other instability, left shoulder (principal)
CPT/HCPCS: 99213